=== PATIENT | female | born 1935 | race Caucasian/White ===

== ENCOUNTER → 2019-05-25 12:14 | Outpatient (BNVA) | payer MEDICARE, OTHER, SELFPAY | PROVIDERS: Family Provider Family Medicine; PCP Family Medicine; Visit Provider Internal Medicine Cardiovascular Disease | DX: I48.91 Unspecified atrial fibrillation (principal) | CPT/HCPCS: 85610 ==

== ENCOUNTER 2019-06-05 14:19 | Emergency (ER) | payer MEDICARE, OTHER, SELFPAY ==
[2019-06-05 14:23] VITALS: BP 146/81; PULSE 79; RESP 17; TEMP 36.8; O2SAT 99; BMI 23.9
--- NOTE | 2019-06-05 15:17 | ECG_ITS ---
Measurements Intervals [place] Rate: 71 P: LA: 0 QRS: 47 QRSD: 132 T: -34 QT: 416 QTc: 452 ATRIAL FIBRILLATION RIGHT BUNDLE BRANCH BLOCK [120+ ms QRS DURATION, UPRIGHT V1, 40+ ms S IN I/ I/aVL/V4/V5/V6] Compared to ECG 04/27/2017 04:59:57 Sinus rhythm no longer present Electronically Signed On 06-05-2019 19:30:58 LEARNING FACILITATOR by Erna Saba M.D. [email or web address]
--- NOTE | 2019-06-05 15:25 | ED_ITS ---
Entered by Rae Jackson, acting as scribe for Ramon Desouza DO Jun 05, 2019 14:19 HPI - Dizziness General: Chief Complaint: Dizziness Stated Complaint: LIGHT HEADED Time Seen by Provider: 06/05/19 15:25 Source: patient and family Mode of arrival: ambulatory Limitations: no limitations History of Present Illness: HPI Narrative: 84 yo Female presents to ED with complaint of dizziness. Pt states that the room is spinning. Pt states that she was sleeping when this started. Pt states that moving and turning her head doesn't change this. Pt's family states that the patient was complaining of a headache the other day. Pt and family states that the patient has had no medication changes recently. Pt's family states that the patient has a leaky heart valve that she takes Metoprolol for. Pt states that she is ok if she is laying down but if she tries to get up, she gets dizzy. MD elicited complaint: dizziness Onset (ago): hour(s) Timing: awoke with symptoms Description: room spinning History of similar symptoms: No Exacerbating factors: nothing Relieving factors: nothing Associated symptoms: Reports no associated symptoms; Denies chest pain, chills, headache(s), malaise, nausea, nasal congestion, palpitations, syncope or vomiting Associated neuro symptoms: Reports no associated symptoms; Deny confusion, difficulty swallowing or numbness in extremities Review of Systems Const: Denies: fever, chills, body aches, fatigue, malaise or night sweats Eyes: Denies: change in vision or blurry vision ENMT: Denies: throat pain, oral sores/lesions, dental pain, nasal discharge or nasal congestion Card: Denies: chest pain, palpitations, irregular heart rhythm, edema, syncope, shortness of breath on exertion, shortness of breath when lying down or leg pain with exertion Resp: Denies: shortness of breath, productive cough, non-productive cough or wheezing GI: Denies: abdominal pain, nausea, vomiting, vomiting blood, coffee grounds in vomit, difficulty swallowing, heartburn/indigestion, diarrhea, constipation, cramping, blood in stool or black tarry stool : Denies: flank pain, painful urination, urinary frequency, urinary urgency, urinary incontinence or blood in urine Musc: Denies: neck pain, back pain, extremity pain, extremity swelling, joint pain or joint swelling Skin/Breast: Denies: rash, itching or redness Neuro: Reports: dizziness; Denies: headache, numbness in extremities, weakness in extremities, changes in sensation, lack of coordination, difficulty walking, frequent falls, vertigo or confusion Psych: Denies: anxiety, depression, loss of interest, visual hallucinations, auditory hallucinations, suicidal ideation or homicidal ideation Endo: Denies: excessive urination, excessive thirst, tired all the time or cold intolerance Earl/Lymph: Denies: easy bruising, easy bleeding, petechiae, enlarged lymph nodes or tender lymph nodes PFSH ED PFSH: Medical History Atrial fibrillation Social History Smoking and tobacco status: former smoker Physical Exam Const: COMMON NORMALS: average body habitus, oriented x3 and alert GENERAL APPEARANCE: cooperative, comfortable, well kempt and well developed NUTRITIONAL APPEARANCE: obese ORIENTATION/CONSCIOUSNESS: Yes awake, Yes oriented to person and Yes oriented to place HENMT: COMMON NORMALS: normocephalic, head/scalp atraumatic, EAC's normal, TM's normal bilaterally, external nose normal, moist oral mucous membranes and oropharynx normal HEAD & SCALP: normocephalic and atraumatic NOSE: external nose normal EXTERNAL AUDITORY CANAL: EAC's normal TYMPANIC MEMBRA NE: TM's normal bilaterally MOUTH: oral and palatal mucosa normal, lip normal and tongue normal THROAT: posterior oropharynx normal and tonsils normal Eye: COMMON NORMALS: PERRL, EOMs intact bilaterally, conjunctivae normal and no scleral icterus CONJUNCTIVA: Yes conjunctivae normal PUPIL: Yes PERRL Neck/C-Spine: COMMON NORMALS: full ROM, no lymphadenopathy, supple, no meningeal signs and thyroid normal THYROID: thyroid normal and asymmetrical Lymph: LYMPHATIC: no lymphadenopathy noted Resp: COMMON NORMALS: normal respiratory effort, no retractions, no use of accessory muscles and clear to auscultation bilaterally AUSCULTATION: clear to auscultation bilaterally Cardio: COMMON NORMALS: regular rate and regular rhythm RATE: regular rate RHYTHM: regular rhythm HEART SOUNDS: no murmurs GI: COMMON NORMALS: normal to inspection, nondistended, normoactive bowel sounds, soft to palpation and no hepatosplenomegaly PALPATION: Yes soft and Yes no hepatosplenomegaly : COMMON NORMALS: Yes no CVA tenderness BLADDER/KIDNEY EXAM: Yes no CVA tenderness Back/Pelvis: COMMON NORMALS: no CVA tenderness LUMBAR SPINE/LOWER BACK: Yes normal to inspection Extremity: COMMON NORMALS: no clubbing, cyanosis or edema, no calf tenderness and no pedal edema Neuro: COMMON NORMALS: oriented x3 SENSORIUM/ORIENTATION: Yes alert, Yes oriented to person and Yes oriented to place MENINGEAL SIGNS: Yes no meningeal signs Psych: APPEARANCE: Yes well kempt Skin: COMMON NORMALS: no rashes or lesions noted and skin turgor normal GENERAL SKIN EXAM: no rashes or lesions noted and turgor normal Course ED course: Reviewed findings the patient she is feeling somewhat better Vital Signs: Vital signs: Vital Signs Temperature 98.2 F 06/05/19 14:23 Pulse Rate 72 06/05/19 18:04 Respiratory Rate 20 H 06/05/19 18:04 Blood Pressure 141/92 06/05/19 18:04 Pulse Oximetry 96 06/05/19 18:04 MDM - Dizziness Lab Data: Labs: Lab Results 06/05/19 06/05/19 06/05/19 Range/Units 15:56 15:56 15:56 WBC 7.2 (4.0-10.0) 10^3/ uL RBC 5.16 (4.1-5.3) 10^6/u L Hgb 14.1 (11.5-15.3) g/dL Hct 44.7 (37.0-47.0) % MCV 86.6 (81-99) fL MCH 27.3 L (28.0-34.0) pg MCHC 31.5 (30.0-36.0) g/dL RDW 16.1 H (12.1-15.1) % Plt Count 262 (130-400) 10^3/c mm MPV 9.6 (7.4-10.4) fL Neut % (Auto) 67.8 % Lymph % (Auto) 23.2 % [place] % (Auto) 8.0 % Eos % (Auto) 0.0 % Baso % (Auto) 0.6 % Neut # (Auto) 4.9 (1.8-7.7) 10^3/u L Lymph # (Auto) 1.7 (0.8-4.8) 10^3/u L [place] # (Auto) 0.6 (0.2-0.9) 10^3/u L Eos # (Auto) 0.0 (0.0-0.8) 10^3/u L Baso # (Auto) 0.0 (0.0-0.1) 10^3/u L Nucleated RBC % (a uto) 0 % Nucleated RBCs # 0.0 /100WBC PT 22.60 H (10.5-13.3) SECO NDS INR 1.91 H (0.8-1.2) Sodium 140 (136-145) mmol/L Potassium 4.1 (3.5-5.1) mmol/L Chloride 104 (98-107) mmol/L Carbon Dioxide 24 (22-29) mmol/L Anion Gap 16.1 (5-19) BUN 21 (8-23) mg/dL Creatinine 0.7 (0.5-0.9) mg/dL Glucose 117 H (65-115) mg/dL Calcium 9.3 (8.5-10.5) mg/dL Total Bilirubin 0.8 (0.15-1.2) mg/dL AST 23 (0-32) U/L ALT 18 (0-33) U/L Alkaline Phosphata se 116 H (35-105) IU/L Total Protein 7.3 (6.6-8.7) g/dL Albumin 3.8 (3.5-5.2) g/dL Globulin 3.5 (1.3-4.6) g/dL Imaging Data^: CT Head: Radiologist's impression: [place] [address] CT Scan Report Signed Patient: Shivani Zepeda #: [id number] : 5Acct#:[id number] Age/Sex: 84 / FADM Date: 06/05/19 Loc: ERRoom/Bed: Attending Dr: Ordering Provider/Ordering MD: Ramon Desouza DO Date of Service: 06/05/19 Procedure(s): CT head wo con* [id number] Accession Number(s): [id number] Report Number: [id number] PROCEDURE INFORMATION: Exam: CT Head Without Contrast Exam date and time: 06/05/2019 4:09 PM Age: 84 years old Clinical indication: Patient HX: C/O dizziness - light headed - BONE; Additional info: Vertigo, headache TECHNIQUE: Imaging protocol: Computed tomography of the head without contrast. Total DLP: 736.58 mGy-cm Radiation optimization: All CT scans at this facility use at least one of these dose optimization techniques: automated exposure control; mA and/or kV adjustment per patient size (includes targeted exams where dose is matched to clinical indication); or iterative reconstruction. COMPARISON: CT head wo con* [id number] 04/26/2017 11:08 AM FINDINGS: Brain: There is diffuse cerebral atrophy present, consistent with this patient's age. Periventricular and subcortical white matter low densities are present which at this age likely represent microvascular ischemic change. No evidence for large acute ischemic infarction. Please note acute ischemia can be occult by head CT. Ventricles: Normal. No ventriculomegaly. Bones/joints: Unremarkable. No acute fracture. Sinuses: Visualized sinuses are unremarkable. No fluid levels. Mastoid air cells: Visualized mastoid air cells are well aerated. Soft tissues: Unremarkable. CT/CT head wo con* [id number] IMPRESSION: There are senescent changes of the brain as described above. No evidence for large acute ischemic infarction or acute intracranial injury. Radiation Dose CTDIVOL = (mGy): DLP = 736.58 (mGy-cm) Dictated By:Madelyn Monge MD Signed By:Madelyn Monge MDSigned Date/Time:06/05/191656 DD/ 54 Discharge Plan Discharge Patient Disposition: Home, Self-Care Clinical Impression: Labyrinthine disorder Condition: Stable Prescriptions: New Ativan 0.5 mg tablet 0.5 mg PO Q8H PRN (Reason: dizziness or vertigo) Qty: 14 RF: 0 meclizine 25 mg tablet 25 mg PO QID PRN (Reason: dizziness) Qty: 30 RF: 0 No Action warfarin 1 mg tablet See Rx Instructions .ROUTE .COMPLEX RF: 0 latanoprost 0.005 % drops 1 drp ophthalmic (eye) DAILY RF: 0 levothyroxine 75 mcg tablet 75 mcg PO DAILY RF: 0 prednisolone acetate 1 % drops,suspension 1 drp ophthalmic (eye) QID RF: 0 timolol maleate 0.25 % drops 1 drp ophthalmic (eye) DAILY RF: 0 omeprazole 20 mg capsule,delayed release(DR/EC) 20 mg PO DAILY RF: 0 felodipine 10 mg tablet extended release 24 hr 10 mg PO DAILY RF: 0 Lasix 20 mg Tablet 20 mg PO DAILY PRN (Reason: Edema) RF: 0 metoprolol tartrate 25 mg tablet 12.5 mg PO BID RF: 0 PreserVision AREDS [id number],[id number] [id number] Tablet 1 tab PO DAILY RF: 0 Myrbetriq 25 mg tablet extended release 24 hr 25 mg PO DAILY RF: 0 Discharge Orders: Discharge Order (Routine); Ordered 06/05/19 Ordered By: Ramon Desouza Referrals: Juan Ramon Diamond DO [Primary Care Provider] - Discharge Diet: Usual diet Discharge Activity: Increase activity as tolerated Activity Restrictions/Additional Instructions: If worsens return to the emergency room. If does not improve follow-up with your primary care doctor. Discharge Date/Time: 06/05/19 18:05 Coding Level of Care Code ED Product Management Internship for Chg Fwd Exam Comprehensive The documentation recorded by the Manuel fernandez Carmen, accurately reflects the service I personally performed and the decisions made by Deo peng Curtis L, DO Jun 05, 2019 14:19
[2019-06-05 16:04] LABS: Basophils % 0.6 %; Hematocrit 44.7 % (37.0-47.0); Hemoglobin 14.1 g/dL (11.5-15.3); Lymphocytes # 1.7 10^3/uL (0.8-4.8); Lymphocytes % 23.2 %; Mean Corpuscular HGB Conc 31.5 g/dL (30.0-36.0); Mean Corpuscular Hemoglobin 27.3 pg (28.0-34.0); Mean Corpuscular Volume 86.6 fL (81-99); Mean Platelet Volume 9.6 fL (7.4-10.4); Monocytes # 0.6 10^3/uL (0.2-0.9); Neutrophils # 4.9 10^3/uL (1.8-7.7); Neutrophils % 67.8 %; Nucleated Red Blood Cells % 0 %; Platelet Count 262 10^3/cmm (130-400); Red Blood Count 5.16 10^6/uL (4.1-5.3); Red Cell Distribution Width 16.1 % (12.1-15.1); White Blood Count 7.2 10^3/uL (4.0-10.0)
--- NOTE | 2019-06-05 16:07 | CTR_ITS ---
PROCEDURE INFORMATION: Exam: CT Head Without Contrast Exam date and time: 06/05/2019 4:09 PM Age: 84 years old Clinical indication: Patient HX: C/O dizziness - light headed - BONE; Additional info: Vertigo, headache TECHNIQUE: Imaging protocol: Computed tomography of the head without contrast. Total DLP: 736.58 mGy-cm Radiation optimization: All CT scans at this facility use at least one of these dose optimization techniques: automated exposure control; mA and/or kV adjustment per patient size (includes targeted exams where dose is matched to clinical indication); or iterative reconstruction. COMPARISON: CT head wo con* [id number] 04/26/2017 11:08 AM FINDINGS: Brain: There is diffuse cerebral atrophy present, consistent with this patient's age. Periventricular and subcortical white matter low densities are present which at this age likely represent microvascular ischemic change. No evidence for large acute ischemic infarction. Please note acute ischemia can be occult by head CT. Ventricles: Normal. No ventriculomegaly. Bones/joints: Unremarkable. No acute fracture. Sinuses: Visualized sinuses are unremarkable. No fluid levels. Mastoid air cells: Visualized mastoid air cells are well aerated. Soft tissues: Unremarkable. CT/CT head wo con* [id number] IMPRESSION: There are senescent changes of the brain as described above. No evidence for large acute ischemic infarction or acute intracranial injury. Radiation Dose CTDIVOL = (mGy): DLP = 736.58 (mGy-cm)
[2019-06-05 16:13] LABS: INR 1.91 (0.8-1.2)
[2019-06-05 16:23] LABS: Alanine Aminotransferase 18 U/L (0-33); Albumin Level 3.8 g/dL (3.5-5.2); Alkaline Phosphatase 116 IU/L (35-105); Anion Gap 16.1 (5-19); Aspartate Amino Transferase 23 U/L (0-32); Blood Urea Nitrogen 21 mg/dL (8-23); Calcium 9.3 mg/dL (8.5-10.5); Carbon Dioxide 24 mmol/L (22-29); Chloride 104 mmol/L (98-107); Creatinine Clr Calc Pharmacy 46.2232; Globulin 3.5 g/dL (1.3-4.6); Glucose 117 mg/dL (65-115); Potassium 4.1 mmol/L (3.5-5.1); Sodium 140 mmol/L (136-145); Total Bilirubin 0.8 mg/dL (0.15-1.2); Total Protein 7.3 g/dL (6.6-8.7)
[2019-06-05] MEDS: sodium chloride 0.9% 500 ML 999 ML IV (17:02)
[2019-06-05] MEDS: LORazepam 2 mg/mL INJ 1 mL 1 MG IVP (17:42)
[2019-06-05 18:04] VITALS: BP 141/92; PULSE 72; RESP 20; O2SAT 96
== END 2019-06-05 18:05 | disposition home or self-care (01) ==
PROVIDERS: Emergency Medicine; Emergency Provider Family Medicine; Family Provider Family Medicine; PCP Family Medicine
DX: H83.90 Unspecified disease of inner ear, unspecified ear (principal); I48.91 Unspecified atrial fibrillation; E66.9 Obesity, unspecified; Z68.23 Body mass index [BMI] 23.0-23.9, adult; Z79.01 Long term (current) use of anticoagulants; Z87.891 Personal history of nicotine dependence
CPT/HCPCS: 36415; 70450; 80053; 85025; 85610; 93005; 96361; 96374; 96375; 99282; 99283; A9270; J2060; J7040

== ENCOUNTER → 2019-06-22 15:09 | Outpatient (BNVA) | payer MEDICARE, OTHER, SELFPAY | PROVIDERS: Family Provider Family Medicine; PCP Family Medicine; Visit Provider Internal Medicine Cardiovascular Disease | DX: I48.91 Unspecified atrial fibrillation (principal); I10 Essential (primary) hypertension | CPT/HCPCS: 85610 ==

== ENCOUNTER 2019-11-23 09:10 | Outpatient (CLI) | payer MEDICARE, OTHER, SELFPAY ==
--- NOTE | 2019-11-23 09:30 | USCV_ITS ---
Shivani Zepeda Age: 84 Gender: F : 1935 Exam Date: 11/23/2019 09:32 Ordering Phys: Angle Carmen Technologist: Romie Garcia [place] [facility] [place]: MVR BP: 125 / 72 HR: 60 Rhythm: Sinus Technical Quality: Adequate MEASUREMENTS (Male / Female) Normal Values 2D ECHO LV Diastolic Diameter PLAX 3.5 cm 4.2 - 5.9 / 3.9 - 5.3 cm LV Systolic Diameter PLAX 2.6 cm IVS Diastolic Thickness 0.9 cm 0.6 - 1.0 / 0.6 - 0.9 cm IVS Systolic Thickness 1.1 cm LVPW Diastolic Thickness 1.1 cm 0.6 - 1.0 / 0.6 - 0.9 cm LVPW Systolic Thickness 1.0 cm LVOT Diameter 2.1 cm LV Ejection Fraction 2D Teich 52.1 % LV Ejection Fraction MOD 2C 54.3 % LV Ejection Fraction 2C AL 55.8 % LA Diameter 3.9 cm LA Width 5.8 cm LA Height 6.7 cm RA Width 4.0 cm RA Height 5.7 cm Aorta at Sinotubular Diameter 0.9 cm M-MODE LV Diastolic Diameter MM 4.2 cm 4.2 - 5.9 / 3.9 - 5.3 cm LV Systolic Diameter MM 3.0 cm LV Ejection Fraction MM Teich 54.3 % IVS Diastolic Thickness MM 1.4 cm 0.6 - 1.0 / 0.6 - 0.9 cm IVS Systolic Thickness MM 1.8 cm LVPW Diastolic Thickness MM 1.6 cm 0.6 - 1.0 / 0.6 - 0.9 cm LVPW Systolic Thickness MM 1.6 cm RV Diastolic Diameter MM 1.6 cm Aortic Annulus Diameter 2.6 cm LA Ao Ratio MM 1.5 MV E Point Septal Separation 0.7 cm DOPPLER AV Peak Velocity 109.0 cm/s LVOT Peak Velocity 67.0 cm/s AV Area Cont Eq vti 2.3 cm squared AV Area Cont Eq pk 2.2 cm squared MV Area PHT 5.0 cm squared Mitral E to A Ratio 3.8 MV E' Velocity 16.0 cm/s Mitral E to MV E' Ratio 7.6 Mitral E to LV E' Lateral Ratio 6.1 Mitral E to LV E' Septal Ratio 10.3 TR Peak Velocity 284.0 cm/s TR Peak Gradient 32.3 mmHg TV Peak E Velocity 93.0 cm/s Right Atrial Pressure 3.0 mmHg Pulmonary Artery Systolic Pressu 35.3 mmHg PV Peak Velocity 108.0 cm/s FINDINGS Left Ventricle Normal left ventricular cavity size. Normal left ventricular systolic function. No regional wall motion abnormalities. Left ventricular ejection fraction is estimated at 55 %. The presence of atrial fibrillation diastolic function cannot be assessed accurately. Right Ventricle The right ventricle is normal in size and function. Mild pulmonary hypertension, RVSP 35.3 mmHg. Right Atrium The right atrium is normal in size. Left Atrium Severely increased left atrial size. Mitral Valve Moderately thickened mitral valve. No mitral valve stenosis. Severe mitral valve regurgitation. Aortic Valve Moderate aortic valve calcification. No aortic valve stenosis. No aortic valve regurgitation. Tricuspid Valve Thickened tricuspid valve. No tricuspid valve stenosis. Severe tricuspid valve regurgitation. Pulmonic Valve Structurally normal pulmonic valve without significant stenosis. There is no pulmonic regurgitation. Pericardium Normal pericardium without effusion. Aorta Normal ascending aorta dimension. CONCLUSIONS 1-Normal left ventricular cavity size. Normal left ventricular systolic function. No regional wall motion abnormalities. Left ventricular ejection fraction is estimated at 55 %. The presence of atrial fibrillation diastolic function cannot be assessed accurately. 2-The right ventricle is normal in size and function. Mild pulmonary hypertension, RVSP 35.3 mmHg. 3-Severely increased left atrial size. 4-Moderately thickened mitral valve. No mitral valve stenosis. Severe mitral valve regurgitation. 5-Moderate aortic valve calcification. No aortic valve stenosis. No aortic valve regurgitation. 6-Thickened tricuspid valve. No tricuspid valve stenosis. Severe tricuspid valve regurgitation. 7-There is no pericardial effusion. 8-There are no prior echocardiogram studies to compare 05/08/2018. Howard Graham MD (Electronically Signed) Final Date: 23 November 2019 20:49 S
== END 2019-11-23 09:11 | disposition home or self-care (01) ==
PROVIDERS: Family Provider Family Medicine; PCP Family Medicine; Visit Provider Nurse Practitioner Family
DX: I27.20 Pulmonary hypertension, unspecified (principal); I08.3 Combined rheumatic disorders of mitral, aortic and tricuspid valves
CPT/HCPCS: 93306

== ENCOUNTER 2020-07-17 16:27 | Emergency (ER) | payer MEDICARE, OTHER, SELFPAY ==
[2020-07-17 16:38] VITALS: BP 160/107; PULSE 70; RESP 18; TEMP 36.7; O2SAT 97; BMI 23.3
--- NOTE | 2020-07-17 17:09 | ECG_ITS ---
[facility] Test Date: 2020-07-17 Pat Name: Shivani Zepeda Department: Room: Gender: Female Story Analyst: : 1935 Requested By: Catracho Reynoso Order Number: [id number] Joesph MD: Humberto Gannon M.D. Measurements Intervals [place] Rate: 71 P: VT: QRS: 24 QRSD: 132 T: -50 QT: 386 QTc: 419 Interpretive Statements ATRIAL FIBRILLATION INTRAVENTRICULAR CONDUCTION DELAY [130+ ms QRS DURATION] Compared to ECG 06/05/2019 14:31:03 Intraventricular conduction delay now present Right bundle-branch block no longer present Electronically Signed On 07-18-2020 1:14:01 CDT by Humberto Gannon M.D. [email or web address]
--- NOTE | 2020-07-17 17:10 | W.ED.GENADLT ---
HPI - General Adult General: Chief complaint: General Medical Stated complaint: high bp Time Seen by Provider: 07/17/20 16:51 Source: patient, family and RN notes reviewed Limitations: no limitations History of Present Illness: HPI narrative: This patient presents to the emergency department for complaints of chronic hypertension. Family member state that the patient has been getting adjustments of her medications for few weeks now but just not controlling her blood pressure. They state the centrifugal wax molder wanted to keep her blood pressure great less than 150 systolic. But she has been trending higher than that. Patient's blood pressure on arrival is 178/110. Patient has no specific complaints. Family is requesting that we do an evaluation to see if there is any adjustments to be made. We did discuss at length with patient's chronic conditions and follow-up with PCP. We also discussed at length with her current medication regimen. And how to maintain a blood pressure log. We will do medical evaluation treat as needed Onset (ago): week(s) (5) Pain Consistency: intermittent Associated symptoms: Deny chest pain, dyspnea, headache(s), nausea, rash, palpitations or vomiting Review of Systems General: Reports: 10 or more systems reviewed and unremarkable except in HPI and below Const: Denies: fever(s), chills, body aches or fatigue Eyes: Denies: change in vision or blurry vision ENMT: Denies: throat pain, hoarseness or mouth pain Card: Denies: chest pain, palpitations, irregular heart rhythm, edema, swelling of feet/ankles or lightheadedness Resp: Denies: dyspnea, productive cough, non-productive cough, wheezing or pain on inspiration GI: Denies: abdominal pain, nausea or vomiting : Denies: flank pain, difficulty voiding, dysuria, urinary frequency, urinary urgency or urinary hesitancy Musc: Denies: neck pain, back pain, extremity pain, extremity swelling, joint pain, joint swelling, joint redness, joint warmth or limited range of motion Skin/Breast: Denies: rash, pruritus, erythema or skin tenderness Neuro: Denies: headache(s), numbness in extremities or weakness in extremities Psych: Denies: anxiety or depression PFS ED PFSH: Medical History (Updated 07/17/20 @ 18:57 by Catracho Reynoso MD) Atrial fibrillation GERD (gastroesophageal reflux disease) HTN (hypertension) Hypothyroidism Long-term (current) use of anticoagulants, INR goal 2.0-3.0 Severe mitral regurgitation Surgical History S/P tonsillectomy Family History Mother Dementia Heart disease Father Lung disease Social History Smoking and tobacco status: former smoker History of recent travel: No Physical Exam Const: COMMON NORMALS: no acute distress, average body habitus, patient oriented x3, no limitations, healthy appearing, alert and well nourished HENMT: COMMON NORMALS: normocephalic, atraumatic, external ears normal, EAC's normal, TM's normal bilaterally, Normal external nose present and Normal nasal mucous membranes and turbinates present HEAD & SCALP: normocephalic and atraumatic NOSE: Normal external nose present and Normal nasal mucous membranes and turbinates present EXTERNAL EAR: Yes external ears normal EXTERNAL AUDITORY CANAL: EAC's normal TYMPANIC MEMBRANE: TM's normal bilaterally Neck/C-Spine: COMMON NORMALS: full ROM, no lymphadenopathy, supple, no meningeal signs, no JVD, Thyroid normal and No carotid bruits THYROID: Thyroid normal Chest: COMMONS NORMALS: normal inspection of the chest, normal palpation of entire chest wall, normal inspection of the breasts and normal palpation of the breasts Breast/axilla inspection: Yes normal inspection of the breasts BREAST/AXILLA PALPATION: Yes normal palpation of the breasts Resp: COMMON NORMALS: normal respiratory effort, No retractions, No use of accessory muscles, clear to auscultation bilaterally and percussion normal AUSCULTATION: clear to auscultation bilaterally PERCUSSION: percussion normal Cardio: COMMON NORMALS: no JVD, regular rate, regular rhythm, S1 normal heart sound present, S2 normal heart sound present, No gallops present (Cardio), No clicks present (Cardio), No murmurs present (Cardio), No rub (Cardio) and Peripheral pulses 2+ throughout RATE: regular rate RHYTHM: regular rhythm HEART SOUNDS: S1 normal heart sound present and S2 normal heart sound present PERIPHERAL PULSES: Peripheral pulses 2+ throughout GI: COMMON NORMALS: Normal to inspection, nondistended, normoactive bowel sounds present, Soft to palpation, non-tender, No hepatosplenomegaly present, no masses and no bruits PALPATION: Yes Soft to palpation and Yes No hepatosplenomegaly present : COMMON NORMALS: Yes no CVA tenderness, Yes normal external appearance, Yes normal appearance of the vagina, Yes normal appearance of the cervix, Yes normal bimanual exam, Yes No adnexal tenderness and Yes no masses BLADDER/KIDNEY EXAM: Yes no CVA tenderness BIMANUAL EXAM - VAGINA & UTERUS: Yes normal bimanual exam Back/Pelvis: COMMON NORMALS: no CVA tenderness, thoracic and lumbar spine normal to inspection, no thoracic nor lumbar tenderness, thoraco-lumbar ROM normal and straight leg raise negative bilaterally Extremity: COMMON NORMALS: normal to inspection, full ROM, capillary refill normal, no joint enlargement, no clubbing, cyanosis or edema, no calf tenderness and no pedal edema Neuro: COMMON NORMALS: patient oriented x3 SENSORIUM/ORIENTATION: Yes alert MENINGEAL SIGNS: Yes no meningeal signs Course Reevaluation(s): Reevaluation #1: Patient is consistently been stable with no complaints. Blood pressure has been consistently around 170/100. Patient has no complaints of pain. Patient does have a chronic issue of incontinence. We did discuss at length with patient about her blood pressure medications and reviewed all medications with family. Both family in person and a family member on the phone per patient's request. Patient will get was given the following instructions and agrees. She will be discharged home follow-up with PCP with blood pressure log as instructed. Continue all home medications. On your blood pressure medicine called metoprolol take 2 tablets twice a day. Hold your metoprolol if your systolic blood pressure is 100 or less or your heart rate is less than 160. Keep a blood pressure log as instructed take your blood pressure first thing in the morning before you take your morning medications. Take your blood pressure in the evening after resting and 30 minutes were prior to dinner or taking her evening medications. Keep a blood pressure log and follow-up with your primary care physician discuss other options for your blood pressure. Return to the emergency department as needed if symptoms fail to improve or worsen. Time: 18:58 Vital Signs: Vital signs: Vital Signs Temperature 98.1 F 07/17/20 16:38 Pulse Rate 77 07/17/20 18:31 Respiratory Rate 18 07/17/20 16:38 Blood Pressure 178/106 07/17/20 18:31 Pulse Oximetry 97 07/17/20 18:31 MDM - General Adult MDM Narrative: Medical decision making narrative: Patient is medically stable with no complaints. Patient does have hypertension and is on multiple medications for the same and followed closely by primary care and cardiology. Patient will double her dose of metoprolol family will continue to monitor and follow-up with cardiology as instructed. Differential Diagnosis: Differential Diagnosis: Hypertension, atrial fib, chronic renal disease, Medical Records: Attestation: I reviewed the patient's medical records. Lab Data: Attestation: I reviewed the patient's lab results. Labs: Lab Results 07/17/20 07/17/20 Range/Units 17:37 17:37 WBC 8.1 (4.0-10.0) 10^3/ uL RBC 4.37 (4.1-5.3) 10^6/u L Hgb 12.5 (11.5-15.3) g/dL Hct 39.1 (37.0-47.0) % MCV 89.5 (81-99) fL MCH 28.6 (28.0-34.0) pg MCHC 32.0 (30.0-36.0) g/dL RDW 15.9 H (12.1-15.1) % Plt Count 253 (130-400) 10^3/c mm MPV 10.3 (7.4-10.4) fL Neut % (Auto) 67.4 % Lymph % (Auto) 21.7 % Crowley % (Auto) 10.3 % Eos % (Auto) 0.0 % Baso % (Auto) 0.2 % Neut # (Auto) 5.48 (1.8-7.7) 10^3/u L Lymph # (Auto) 1.8 (0.8-4.8) 10^3/u L Crowley # (Auto) 0.8 (0.2-0.9) 10^3/u L Eos # (Auto) 0.0 (0.0-0.8) 10^3/u L Baso # (Auto) 0.0 (0.0-0.1) 10^3/u L Nucleated RBC % (a uto) 0 % Nucleated RBCs # 0.0 /100WBC Sodium 139 (136-145) mmol/L Chloride 104 (98-107) mmol/L Carbon Dioxide 26 (22-29) mmol/L BUN 17 (8-23) mg/dL Creatinine 0.6 (0.5-0.9) mg/dL GFR Calculation Not Reportable Glucose 105 (65-115) mg/dL Calculated Osmolal ity 290 (285-295) mOsm/k g Calcium 8.5 (8.5-10.5) mg/dL Total Bilirubin 0.8 (0.15-1.2) mg/dL AST 17 (0-32) U/L ALT 15 (0-33) U/L Total Protein 7.0 (6.6-8.7) g/dL Albumin 3.9 (3.5-5.2) g/dL Globulin 3.1 (1.3-4.6) g/dL EKG Data^: EKG 1: Attestation: I personally reviewed and interpreted this EKG as follows: EKG interpretation date: 07/17/20 EKG interpretation time: 18:01 Prior EKG tracings: available for review Interpretation: Atrial fibrillation. Interventricular conduction delay. Heart rate 71 nonspecific EKG changes. Abnormal EKG Discharge Plan Discharge Patient Disposition: Home Clinical Impression: HTN (hypertension), Atrial fibrillation, Severe mitral regurgitation Condition: Stable Prescriptions: No Action levothyroxine 88 mcg capsule 88 mcg PO DAILY@1100 RF: 0 hydrochlorothiazide 12.5 mg tablet 12.5 mg PO BID Qty: 180 RF: 3 isosorbide mononitrate 30 mg tablet extended release 24 hr 15 mg PO BID Qty: 90 RF: 3 warfarin 2 mg tablet 2 mg PO DAILY 90 Days Qty: 90 RF: 3 warfarin 1 mg tablet 1 mg PO BID 90 Days Qty: 180 RF: 3 metoprolol tartrate 25 mg tablet 12.5 mg PO BID Qty: 30 RF: 6 latanoprost 0.005 % drops 1 drp ophthalmic (eye) BID RF: 0 timolol maleate 0.25 % drops 1 drp ophthalmic (eye) DAILY RF: 0 Myrbetriq 25 mg tablet extended release 24 hr 25 mg PO DAILY RF: 0 PreserVision AREDS 7,160-113-100 [id number] tablet 1 tab PO BID RF: 0 valsartan 80 mg tablet 80 mg PO BID RF: 0 Discharge Orders: Discharge ED (Routine); Ordered 07/17/20 Ordered By: Catracho Reynoso Referrals: Juan Ramon Diamond, DO [Primary Care Provider] - Discharge Diet: Advance as tolerated Discharge Activity: Resume usual activity Patient Instructions: Opioid Safety Activity Restrictions/Additional Instructions: Continue all home medications. On your blood pressure medicine called metoprolol take 2 tablets twice a day. Hold your metoprolol if your systolic blood pressure is 100 or less or your heart rate is less than 160. Keep a blood pressure log as instructed take your blood pressure first thing in the morning before you take your morning medications. Take your blood pressure in the evening after resting and 30 minutes were prior to dinner or taking her evening medications. Keep a blood pressure log and follow-up with your primary care physician discuss other options for your blood pressure. Return to the emergency department as needed if symptoms fail to improve or worsen. Coding Level of Care Code ED Water Chaser for Juan Fwjero Exam Comprehensive
[2020-07-17 17:48] LABS: Basophils % 0.2 %; Hematocrit 39.1 % (37.0-47.0); Hemoglobin 12.5 g/dL (11.5-15.3); Lymphocytes # 1.8 10^3/uL (0.8-4.8); Lymphocytes % 21.7 %; Mean Corpuscular Hemoglobin 28.6 pg (28.0-34.0); Mean Corpuscular Volume 89.5 fL (81-99); Mean Platelet Volume 10.3 fL (7.4-10.4); Monocytes # 0.8 10^3/uL (0.2-0.9); Monocytes % 10.3 %; Neutrophils # 5.48 10^3/uL (1.8-7.7); Neutrophils % 67.4 %; Nucleated Red Blood Cells % 0 %; Platelet Count 253 10^3/cmm (130-400); Red Blood Count 4.37 10^6/uL (4.1-5.3); Red Cell Distribution Width 15.9 % (12.1-15.1); White Blood Count 8.1 10^3/uL (4.0-10.0)
[2020-07-17] MEDS: amlodipine 10 mg Tablet PO (17:49)
[2020-07-17 18:07] LABS: Alanine Aminotransferase 15 U/L (0-33); Albumin Level 3.9 g/dL (3.5-5.2); Alkaline Phosphatase 114 IU/L (35-105); Aspartate Amino Transferase 17 U/L (0-32); Blood Urea Nitrogen 17 mg/dL (8-23); Calcium 8.5 mg/dL (8.5-10.5); Carbon Dioxide 26 mmol/L (22-29); Chloride 104 mmol/L (98-107); Globulin 3.1 g/dL (1.3-4.6); Glucose 105 mg/dL (65-115); Osmolality Calculated 290 mOsm/kg (285-295); Sodium 139 mmol/L (136-145); Total Bilirubin 0.8 mg/dL (0.15-1.2)
[2020-07-17 18:31] VITALS: BP 178/106; PULSE 77; O2SAT 97
[2020-07-17 18:55] LABS: Anion Gap 13.2 (5-19); Potassium 4.2 mmol/L (3.5-5.1)
[2020-07-17 19:45] VITALS: BP 182/110; PULSE 78; RESP 16; O2SAT 95
== END 2020-07-17 19:46 | disposition home or self-care (01) ==
PROVIDERS: Emergency Provider Emergency Medicine; PCP Family Medicine
DX: I48.91 Unspecified atrial fibrillation (principal); I34.0 Nonrheumatic mitral (valve) insufficiency; I10 Essential (primary) hypertension; Z79.01 Long term (current) use of anticoagulants; Z87.891 Personal history of nicotine dependence
CPT/HCPCS: 80053; 85025; 93005; 99283

== ENCOUNTER 2020-09-08 13:29 | Outpatient (CLI) | payer MEDICARE, OTHER, SELFPAY | END 2020-09-08 13:30 | disposition home or self-care (01) | PROVIDERS: PCP Family Medicine; Visit Provider Nurse Practitioner Family | DX: N39.0 Urinary tract infection, site not specified (principal) | CPT/HCPCS: 87086 ==

== ENCOUNTER → 2020-11-05 13:38 | Outpatient (BNVA) | payer MEDICARE, OTHER, SELFPAY | PROVIDERS: PCP Family Medicine; Visit Provider Nurse Practitioner Family | DX: N39.0 Urinary tract infection, site not specified (principal) | CPT/HCPCS: 81000; 87086 ==

== ENCOUNTER 2020-11-17 08:08 | Outpatient (CLI) | payer MEDICARE, OTHER, SELFPAY ==
--- NOTE | 2020-11-17 08:36 | XR_ITS ---
WS: [id number] ABDOMEN KUB CLINICAL INFORMATION: Renal/ureteral calculi. COMPARISON: None. FINDINGS: Minimal lumbar curve. Moderate spondylitic changes lumbar spine. Osteopenia. No visualized renal parenchymal or ureteral calculi. Pelvic phleboliths. Sigmoid constipation. XR/XR KUB [id number] Impression: No visualized renal parenchymal or ureteral calculi.
== END 2020-11-17 08:09 | disposition home or self-care (01) ==
PROVIDERS: PCP Family Medicine; Visit Provider Clinical Nurse Specialist Adult Health
DX: R30.0 Dysuria (principal)
CPT/HCPCS: 74018

== ENCOUNTER 2021-04-29 21:00 | Emergency (ER) | payer MEDICARE, OTHER, SELFPAY ==
--- NOTE | 2021-04-29 | XRR_ITS ---
PROCEDURE INFORMATION: Exam: XR Chest Exam date and time: 04/29/2021 10:29 PM Age: 86 years old Clinical indication: Dyspnea; Additional info: Covid 19 TECHNIQUE: Imaging protocol: XR of the chest. Views: 1 view. COMPARISON: CR Chest 1 [place] [id number] 04/26/2017 1:39 PM FINDINGS: Lungs: Hazy increased density in the right lung which may be secondary to atelectasis or COVID-19. Pleural spaces: Unremarkable. No pleural effusion. No pneumothorax. Heart/Mediastinum: There is mild cardiomegaly. Bones/joints: Unremarkable. XR/XR chest 1V portable [id number] IMPRESSION: 1. Mild cardiomegaly. 2. Hazy increased density in the right lung which may be secondary to atelectasis or COVID-19.
[2021-04-29 21:47] VITALS: BP 160/86; PULSE 107; RESP 20; TEMP 37.9; O2SAT 95; BMI 22.6
[2021-04-29 23:12] LABS: Basophils % 0.3 %; Hematocrit 42.2 % (37.0-47.0); Hemoglobin 13.6 g/dL (11.5-15.3); Lymphocytes # 1.1 10^3/uL (0.8-4.8); Lymphocytes % 10.9 %; Mean Corpuscular HGB Conc 32.2 g/dL (30.0-36.0); Mean Corpuscular Hemoglobin 29.6 pg (28.0-34.0); Mean Corpuscular Volume 91.7 fl (81-99); Mean Platelet Volume 10.3 fL (7.4-10.4); Monocytes # 1.3 10^3/uL (0.2-0.9); Monocytes % 12.5 %; Neutrophils # 7.75 10^3/uL (1.8-7.7); Neutrophils % 75.8 %; Nucleated Red Blood Cells % 0 %; Platelet Count 213 10^3/cmm (130-400); Red Cell Distribution Width 15.5 % (12.1-15.1); White Blood Count 10.2 10^3/uL (4.0-10.0)
[2021-04-29 23:37] LABS: Alanine Aminotransferase 15 U/L (0-33); Albumin Level 3.5 g/dL (3.5-5.2); Alkaline Phosphatase 114 IU/L (35-105); Anion Gap 16.1 (5-19); Aspartate Amino Transferase 18 U/L (0-32); Blood Urea Nitrogen 15 mg/dL (8-23); Calcium 8.5 mg/dL (8.5-10.5); Carbon Dioxide 22 mmol/L (22-29); Chloride 105 mmol/L (98-107); Globulin 3.2 g/dL (1.3-4.6); Glucose 140 mg/dL (65-115); Osmolality Calculated 291 mOsm/kg (285-295); Potassium 4.1 mmol/L (3.5-5.1); Sodium 139 mmol/L (136-145); Total Bilirubin 0.8 mg/dL (0.15-1.2); Total Protein 6.7 g/dL (6.6-8.7)
--- NOTE | 2021-04-30 01:57 | ED_ITS ---
HPI - COVID General: Chief Complaint: COVID symptoms Stated Complaint: Covid Symptoms Time Seen by Provider: 04/30/21 01:44 Triage information: Has fever, cough or shortness of breath . Exposure to COVID + person last 14 days History of Present Illness: HPI Narrative: 86-year-old female comes in today with complaints of fever and chills for the last 4 days. Patient reports starting fever on Friday. Patient a COVID-19 test done today at home that was positive. On exam patient appears unwell but not toxic. Patient is able to answer questions without difficulty. COVID 19 common symptoms: positive fever(s), non-productive cough and dyspnea COVID Results: No Data to Display Review of Systems Const: Reports: fever(s) and malaise Resp: Reports: dyspnea and non-productive cough [facility] ED PFSH: Medical History (Updated 04/30/21 @ 02:02 by JAZZY Cool) Atrial fibrillation GERD (gastroesophageal reflux disease) HTN (hypertension) Hypothyroidism Long-term (current) use of anticoagulants, INR goal 2.0-3.0 Severe mitral regurgitation Surgical History S/P tonsillectomy Family History Mother Dementia Heart disease Father Lung disease Social History Smoking and tobacco status: former smoker History of recent travel: No Physical Exam Const: COMMON NORMALS: patient oriented x3 and alert GENERAL APPEARANCE: ill appearing HENMT: COMMON NORMALS: atraumatic HEAD & SCALP: atraumatic MOUTH: moist mucous membranes abnormal Details: parched Resp: COMMON NORMALS: normal respiratory effort EFFORT & INSPECTION: Yes able to speak in complete sentences AUSCULTATION: diminished lung sounds Cardio: COMMON NORMALS: regular rate and Peripheral pulses 2+ throughout RATE: regular rate RHYTHM: abnormal rhythm irregularly irregular PERIPHERAL PULSES: Peripheral pulses 2+ throughout GI: COMMON NORMALS: Soft to palpation PALPATION: Yes Soft to palpation and No Tenderness to palpation present (GI) Extremity: COMMON NORMALS: no pedal edema Neuro: COMMON NORMALS: patient oriented x3 SENSORIUM/ORIENTATION: Yes alert Psych: ATTITUDE: Yes calm Skin: COMMON NORMALS: no rashes or lesions noted GENERAL SKIN EXAM: no rashes or lesions noted Course Vital Signs: Vital signs: Vital Signs Temperature 100.3 F H 04/29/21 21:47 Pulse Rate 107 H 04/29/21 21:47 Respiratory Rate 20 H 04/29/21 21:47 Blood Pressure 160/86 04/29/21 21:47 Pulse Oximetry 95 04/29/21 21:47 MDM - COVID MDM Narrative: Medical decision making narrative: Patient was brought in by family member for concerns of increased weakness. Patient has been ill since Friday with a fever and occasional cough. Family did a COVID-19 test this morning and it was positive. Daughter was concerned the patient may have been get dehydrated. On exam patient's lungs are diminished in the bases, normal respiratory effort, patient is able to answer questions without difficulty. Abdomen soft nontender. No edema. Heart rate was irregular. Vital signs were normal. Differential diagnosis includes COVID-19 pneumonia, viral syndrome, dehydration. Laboratory values were unremarkable. Patient did have mild elevation in white count at 10,000. Chest x-ray showed a light patch infiltrate to the right lung. We treated patient with 500 mL bolus of normal saline, 10 mg of dexamethasone IV push. Patient was encouraged to drink plenty of fluids we will arrange for patient to have monoclonal antibody at the infusion service. Patient and family both reported understanding agreed to plan. Lab Data: Labs: Lab Results 04/29/21 04/29/21 23:05 23:05 WBC 10.2 10^3/uL H 10 ^3/uL (4.0-10.0) RBC 4.60 10^6/uL 10^6 /uL (4.1-5.3) Hgb 13.6 g/dL g/dL (11.5-15.3) Hct 42.2 % % (37.0-47.0) MCV 91.7 fl fl (81-99) MCH 29.6 pg pg (28.0-34.0) MCHC 32.2 g/dL g/dL (30.0-36.0) RDW 15.5 % H % (12.1-15.1) Plt Count 213 10^3/cmm 10^3 /cmm (130-400) MPV 10.3 fL fL (7.4-10.4) Neut % (Auto) 75.8 % % Lymph % (Auto) 10.9 % % Anderson % (Auto) 12.5 % % Eos % (Auto) 0.0 % % Baso % (Auto) 0.3 % % Neut # (Auto) 7.75 10^3/uL H 10 ^3/uL (1.8-7.7) Lymph # (Auto) 1.1 10^3/uL 10^3/ uL (0.8-4.8) Anderson # (Auto) 1.3 10^3/uL H 10^ 3/uL (0.2-0.9) Eos # (Auto) 0.0 10^3/uL 10^3/ uL (0.0-0.8) Baso # (Auto) 0.0 10^3/uL 10^3/ uL (0.0-0.1) Nucleated RBC % (a uto) 0 % % Nucleated RBCs # 0.0 /100WBC /100W BC Sodium 139 mmol/L mmol/L (136-145) Potassium 4.1 mmol/L mmol/L (3.5-5.1) Chloride 105 mmol/L mmol/L (98-107) Carbon Dioxide 22 mmol/L mmol/L (22-29) Anion Gap 16.1 (5-19) BUN 15 mg/dL mg/dL (8-23) Creatinine 0.6 mg/dL mg/dL (0.5-0.9) GFR Calculation Not Reportable Glucose 140 mg/dL H mg/dL (65-115) Calculated Osmolal ity 291 mOsm/kg mOsm/ kg (285-295) Calcium 8.5 mg/dL mg/dL (8.5-10.5) Total Bilirubin 0.8 mg/dL mg/dL (0.15-1.2) AST 18 U/L U/L (0-32) ALT 15 U/L U/L (0-33) Alkaline Phosphata se 114 IU/L H IU/L (35-105) Total Protein 6.7 g/dL g/dL (6.6-8.7) Albumin 3.5 g/dL g/dL (3.5-5.2) Globulin 3.2 g/dL g/dL (1.3-4.6) COVID Results: No Data to Display Discharge Plan Discharge Patient Disposition: Home Clinical Impression: Pneumonia due to COVID-19 virus Condition: Stable Prescriptions: No Action levothyroxine 88 mcg capsule 88 mcg PO DAILY@1100 RF: 0 hydrochlorothiazide 12.5 mg tablet 12.5 mg PO BID Qty: 180 RF: 3 isosorbide mononitrate 30 mg tablet extended release 24 hr 15 mg PO BID Qty: 90 RF: 3 trimethoprim 100 mg tablet 100 mg PO DAILY RF: 0 warfarin 2 mg tablet 2 mg PO DAILY 90 Days Qty: 90 RF: 3 felodipine 10 mg tablet extended release 24 hr 10 mg PO DAILY PRN (Reason: BP >140) Qty: 30 RF: 0 warfarin 1 mg tablet 1 mg PO BID 90 Days Qty: 180 RF: 3 latanoprost 0.005 % drops 1 drp ophthalmic (eye) BID RF: 0 timolol maleate 0.25 % drops 1 drp ophthalmic (eye) DAILY RF: 0 Myrbetriq 25 mg tablet extended release 24 hr 25 mg PO DAILY RF: 0 PreserVision AREDS 7,160-113-100 [id number] tablet 1 tab PO BID RF: 0 valsartan 80 mg tablet 160 mg PO BID RF: 0 Discharge Orders: Discharge ED (Routine); Ordered 04/30/21 Ordered By: Phoenix Hutchison Other Ambulatory Orders: Request for MCA (Routine) Timeframe: 1 Day Facility: [facility] - Location: [facility] Ordered By: Phoenix Hutchison Referrals: Juan Ramon Diamond DO [Primary Care Provider] - Patient Instructions: Opioid Safety Activity Restrictions/Additional Instructions: Home and rest. Drink plenty of fluids. Activity as tolerated. Use inhaler 2 puffs every 4 hours as needed for shortness of breath. Use acetaminophen 2 tablets every 6 hours as needed for pain or fever. Follow-up with primary care in 3 days. Scheduling will be calling you regarding the monoclonal antibody infusion within the next 2 days. Return to the ER for worsening symptoms or new concerns. Continue monitoring oxygen, if it gets below 90% return to the ER for further evaluation and treatment. Coding Level of Care Code ED Lithographic Press Operator Apprentice for Juan Fwd Exam Comprehensive
[2021-04-30] MEDS: sodium chloride 0.9% 500 ML IV (02:56)
[2021-04-30] MEDS: dexamethasone 10 mg/mL INJ IVP (02:56)
[2021-04-30 03:22] LABS: SARS Covid-2 Antigen Positive (Negative)
[2021-04-30] MEDS: albuterol 8 gm MDI 2 PUFF INHALATION (03:38)
[2021-04-30 04:27] VITALS: BP 184/118; PULSE 106; RESP 18; O2SAT 96
== END 2021-04-30 04:28 | disposition home or self-care (01) ==
PROVIDERS: Emergency Provider Nurse Practitioner Family; PCP Family Medicine
DX: U07.1 COVID-19 (principal); J12.82 Pneumonia due to coronavirus disease 2019; Z79.01 Long term (current) use of anticoagulants; I10 Essential (primary) hypertension; Z87.891 Personal history of nicotine dependence
CPT/HCPCS: 71045; 80053; 85025; 87426; 94640; 96361; 96374; 99283; J1100; J3535; J7040

== ENCOUNTER 2021-05-03 11:30 | Outpatient (CLI) | payer MEDICARE, OTHER, SELFPAY ==
[2021-05-03 11:30] VITALS: BP 170/92; PULSE 105; RESP 20; TEMP 36.5; O2SAT 96; BMI 23.8
[2021-05-03 12:30] VITALS: BP 175/99; PULSE 106; RESP 20; TEMP 36.5; O2SAT 97
[2021-05-03 13:39] VITALS: BP 177/104; PULSE 98; RESP 18; TEMP 36.5; O2SAT 97
== END 2021-05-03 11:31 | disposition home or self-care (01) ==
LOC: OPS 17:32
PROVIDERS: PCP Family Medicine; Visit Provider Nurse Practitioner Family
DX: U07.1 COVID-19 (principal)
CPT/HCPCS: 96365

== ENCOUNTER 2021-05-31 21:33 | Emergency (ER) | payer MEDICARE, OTHER, SELFPAY ==
--- NOTE | 2021-05-31 21:37 | XRR_ITS ---
PROCEDURE INFORMATION: Exam: XR Chest Exam date and time: 05/31/2021 9:37 PM Age: 86 years old Clinical indication: Other: Headache; Additional info: Weakness TECHNIQUE: Imaging protocol: XR of the chest. Views: 1 view. COMPARISON: CR (CHEST, ) 04/29/2021 11:20 PM FINDINGS: Lungs: Unremarkable. No consolidation. Pleural spaces: Unremarkable. No pleural effusion. No pneumothorax. Heart/Mediastinum: Mild to moderate cardiomegaly. Bones/joints: Unremarkable. XR/XR chest 1V portable [id number] IMPRESSION: No focal acute pulmonary disease.
--- NOTE | 2021-05-31 21:37 | ECG_ITS ---
[facility] Test Date: 2021-05-31 Pat Name: Shivani Zepeda Department: Room: Gender: Female Informatica Developer: : [id number] Requested By: Bogdan Reyes Order Number: [id number] Joesph MD: Erna Saba M.D. Measurements Intervals Nelson Rate: 87 P: MO: QRS: 43 QRSD: 137 T: -32 QT: 373 QTc: 451 Interpretive Statements ATRIAL FIBRILLATION RIGHT BUNDLE BRANCH BLOCK [120+ ms QRS DURATION, UPRIGHT V1, 40+ ms S IN I/aVL/V4/V5/V6] Compared to ECG 07/17/2020 18:01:03 Right bundle-branch block now present Intraventricular conduction delay no longer present Electronically Signed On 06-02-2021 10:29:33 CRITICAL CARE TECHNICIAN by Erna Saba M.D. [id number]
--- NOTE | 2021-05-31 21:37 | CTR_ITS ---
PROCEDURE INFORMATION: Exam: CT Head Without Contrast Exam date and time: 05/31/2021 9:37 PM Age: 86 years old Clinical indication: Pain; Headache; Patient HX: BONE with hypertension. Family states she had facial droop at home. TECHNIQUE: Imaging protocol: Computed tomography of the head without contrast. Radiation optimization: All CT scans at this facility use at least one of these dose optimization techniques: automated exposure control; mA and/or kV adjustment per patient size (includes targeted exams where dose is matched to clinical indication); or iterative reconstruction. COMPARISON: CT head wo con* [id number] 06/05/2019 4:35 PM RADIATION DOSE METRICS: Total DLP (mGy-cm): 786.43 FINDINGS: Brain: There is marked cerebral atrophy. There is marked diffuse heterogeneity of the white matter attenuation, consistent with severe chronic white matter ischemic changes. Negative for intracranial hemorrhage. No midline shift of the brain. No intracranial mass. No acute brain ischemia identified. Cerebral ventricles: No ventriculomegaly. Paranasal sinuses: Visualized sinuses are unremarkable. No fluid levels. Mastoid air cells: Visualized mastoid air cells are well aerated. Bones/joints: Unremarkable. No acute fracture. Soft tissues: Unremarkable. CT/CT head wo con* [id number] IMPRESSION: 1. Negative for acute intracranial abnormality. 2. No significant change from comparison.
--- NOTE | 2021-05-31 21:37 | CTR_ITS ---
PROCEDURE INFORMATION: Exam: CT Angiography Head With Contrast, Arteriography Exam date and time: 05/31/2021 9:37 PM Age: 86 years old Clinical indication: Pain; Headache; Patient HX: BONE with hypertension. Family states she had facial droop at home. TECHNIQUE: Imaging protocol: Computed tomography angiography of the head with contrast. Exam focused on the arteries. 3D rendering (Not supervised by radiologist): MIP and/or 3D reconstructed images were created by the technologist. Radiation optimization: All CT scans at this facility use at least one of these dose optimization techniques: automated exposure control; mA and/or kV adjustment per patient size (includes targeted exams where dose is matched to clinical indication); or iterative reconstruction. Contrast material: OMNI 350; Contrast volume: 95 ml; Contrast route: INTRAVENOUS (IV); COMPARISON: CT head wo con* [id number] 05/31/2021 10:36 PM RADIATION DOSE METRICS: Total DLP (mGy-cm): 1605.8 FINDINGS: ANTERIOR CIRCULATION: Right internal carotid artery: Unremarkable. Intracranial segment is patent with no significant stenosis. No aneurysm. Right middle cerebral artery: Unremarkable. No occlusion or significant stenosis. No aneurysm. Right anterior cerebral artery: Unremarkable. No occlusion or significant stenosis. No aneurysm. Left internal carotid artery: Unremarkable. Intracranial segment is patent with no significant stenosis. No aneurysm. Left middle cerebral artery: Unremarkable. No occlusion or significant stenosis. No aneurysm. Left anterior cerebral artery: Unremarkable. No occlusion or significant stenosis. No aneurysm. POSTERIOR CIRCULATION: Right vertebral artery: Unremarkable. No occlusion or significant stenosis. No aneurysm. Left vertebral artery: Unremarkable. No occlusion or significant stenosis. No aneurysm. Basilar artery: Unremarkable. No occlusion or significant stenosis. No aneurysm. Right posterior cerebral artery: Unremarkable. No occlusion or significant stenosis. No aneurysm. Left posterior cerebral artery: Unremarkable. No occlusion or significant stenosis. No aneurysm. Brain: No definite mass, mass effect, or midline shift. Cerebral ventricles: No ventriculomegaly. Bones/joints: Unremarkable. No acute fracture. Soft tissues: Unremarkable. PROCEDURE INFORMATION: Exam: CT Angiography Neck With Contrast Exam date and time: 05/31/2021 9:37 PM Age: 86 years old Clinical indication: Pain; Headache; Patient HX: BONE with hypertension. Family states she had facial droop at home. TECHNIQUE: Imaging protocol: Computed tomography angiography of the neck with contrast. 3D rendering (Not supervised by radiologist): MIP and/or 3D reconstructed images were created by the technologist. Radiation optimization: All CT scans at this facility use at least one of these dose optimization techniques: automated exposure control; mA and/or kV adjustment per patient size (includes targeted exams where dose is matched to clinical indication); or iterative reconstruction. Contrast material: OMNI 350; Contrast volume: 95 ml; Contrast route: INTRAVENOUS (IV); COMPARISON: CT head wo con* [id number] 05/31/2021 10:36 PM RADIATION DOSE METRICS: Total DLP (mGy-cm): 1605.8 FINDINGS: Right common carotid artery: No stenosis. No dissection or occlusion. Right internal carotid artery: No stenosis of the extracranial segment. No dissection or occlusion. Right external carotid artery: No occlusion or stenosis of the origin. Left common carotid artery: No stenosis. No dissection or occlusion. Left internal carotid artery: No stenosis of the extracranial segment. No dissection or occlusion. Left external carotid artery: No occlusion or stenosis of the origin. Right vertebral artery: No stenosis. No dissection or occlusion. Left vertebral artery: No stenosis. No dissection or occlusion. Soft tissues: Normal. No significant soft tissue swelling. Bones/joints: The cervical spine demonstrates marked degenerative changes at multiple levels. Lungs: Emphysematous lung changes. Possible right upper lobe pulmonary nodule which is incompletely assessed measuring about 9 mm diameter, although the nodules motion distorted. CT/CT angio headneck* [id number] IMPRESSION: No intracranial large vessel significant stenosis or occlusion. IMPRESSION: 1. Less than 50% carotid artery stenosis. 2. Incidental right upper lobe pulmonary nodule. 3. Recommend outpatient surveillance with dedicated CT chest. REFERENCES: NASCET CRITERIA. The degree of internal carotid artery stenosis is based on NASCET criteria. Normal is no stenosis. Mild is less than 50% stenosis. Moderate is 50-69% stenosis. Severe is 70% to 99% stenosis. Total occlusion is no detectable patent lumen.
--- NOTE | 2021-05-31 21:38 | ED_ITS ---
HPI - Neuro Symptoms/Deficit General: Chief Complaint: Headache Stated Complaint: headache Time Seen by Provider: 05/31/21 21:33 Source: patient and EMS Mode of arrival: EMS Limitations: no limitations History of Present Illness: 86-year-old female who is here with EMS for mild headache along with some weakness. Family was concerned she may have a stroke if that she had some facial droop roughly 5 to 6 hours ago she did complain of a mild headache. Patient has no neuro deficits here she was able to ambulate at the home per EMS with a walker. States her headaches currently a 2 out of 10 she also gets very frequent urinary tract infections as well. Denies any cough or fever. Associated symptoms: Reports headache(s); Deny chest pain, nausea or vomiting Review of Systems Const: Denies: fever(s), chills, body aches or change in appetite Eyes: Denies: blurry vision or eye discomfort ENMT: Denies: throat pain or dental pain Card: Denies: chest pain Resp: Denies: dyspnea GI: Denies: abdominal pain, nausea, vomiting or diarrhea : Denies: dysuria Musc: Denies: neck pain or back pain Skin/Breast: Denies: rash Neuro: Reports: headache(s) Psych: Denies: depression Earl/Lymph: Denies: easy bruising All/Imm: Denies: urticaria PFS ED PFSH: Medical History (Updated 05/31/21 @ 23:22 by Bogdan Reyes MD) Atrial fibrillation GERD (gastroesophageal reflux disease) HTN (hypertension) Hypothyroidism Long-term (current) use of anticoagulants, INR goal 2.0-3.0 Severe mitral regurgitation Surgical History S/P tonsillectomy Family History Mother Dementia Heart disease Father Lung disease Social History Smoking and tobacco status: former smoker History of recent travel: No NIH stroke score NIHSS: Level Of Consciousness - 1a: 0 Level Of Consciousness Questions - 1b: Both Correct Level Of Consciousness Commands - 1c: Both Correct Best Gaze - 2: Normal Visual Harris - 3: No Visual Loss Facial Palsy - 4: Normal Motor Arm Right - 5: No Drift Motor Arm Left - 5: No Drift Motor Leg Right - 6: No Drift Motor Leg Left - 6: No Drift Limb Ataxia - 7: Absent Sensory - 8: Normal Best Language - 9: No Aphasia Dysarthia - 10: Normal Extinction And Inattention - 11: 0 Score: Total Score: 0 Physical Exam Const: COMMON NORMALS: no acute distress, patient oriented x3 and healthy appearing HENMT: COMMON NORMALS: normocephalic and atraumatic HEAD & SCALP: normocephalic and atraumatic Eye: COMMON NORMALS: Equal, round and reactive pupils present and EOMs intact bilaterally PUPIL: Yes Equal, round and reactive pupils present Neck/C-Spine: COMMON NORMALS: full ROM and supple Chest: COMMONS NORMALS: normal inspection of the chest and normal palpation of entire chest wall Resp: COMMON NORMALS: normal respiratory effort, No retractions, No use of accessory muscles and clear to auscultation bilaterally AUSCULTATION: clear to auscultation bilaterally Cardio: COMMON NORMALS: regular rate, regular rhythm and No murmurs present (Cardio) RATE: regular rate RHYTHM: regular rhythm GI: COMMON NORMALS: Normal to inspection, nondistended, normoactive bowel sounds present, Soft to palpation, non-tender and no masses PALPATION: Yes Soft to palpation Extremity: COMMON NORMALS: normal to inspection and full ROM Neuro: COMMON NORMALS: patient oriented x3, moves all extremities and no focal motor deficits Psych: COMMON NORMALS: mental status grossly normal, Normal thought process present and cooperative THOUGHT PROCESS: Normal thought process present Skin: COMMON NORMALS: no rashes or lesions noted and no wounds GENERAL SKIN EXAM: no rashes or lesions noted Course Vital Signs: Vital signs: Vital Signs Temperature 97.2 F L 05/31/21 21:39 Pulse Rate 88 05/31/21 23:22 Respiratory Rate 16 05/31/21 23:22 Blood Pressure 157/119 05/31/21 23:22 Pulse Oximetry 96 05/31/21 23:22 MDM - Neuro Symptoms/Deficit Medical Decision Making Patient presents here mild headache she was found to have a urinary tract infection likely causing her weakness she has no signs of a stroke here CT and CTA are normal we will place her on Keflex she is to follow-up with PCP and return if worsening. Lab Data : 05/31/21 20:53 05/31/21 22:30 Radiology Impressions Chest X-Ray 05/31/21 21:37 IMPRESSION: No focal acute pulmonary disease. Head CT 05/31/21 21:37 IMPRESSION: 1. Negative for acute intracranial abnormality. 2. No significant change from comparison. Head/Neck CTA 05/31/21 21:37 IMPRESSION: No intracranial large vessel significant stenosis or occlusion. IMPRESSION: 1. Less than 50% carotid artery stenosis. 2. Incidental right upper lobe pulmonary nodule. 3. Recommend outpatient surveillance with dedicated CT chest. REFERENCES: NASCET CRITERIA. The degree of internal carotid artery stenosis is based on NASCET criteria. Normal is no stenosis. Mild is less than 50% stenosis. Moderate is 50-69% stenosis. Severe is 70% to 99% stenosis. Total occlusion is no detectable patent lumen. Laboratory Results WBC 8.7 10^3/uL (4.0-10.0) 05/31/21 20:53 RBC 4.52 10^6/uL (4.1-5.3) 05/31/21 20:53 Hgb 13.0 g/dL (11.5-15.3) 05/31/21 20:53 Hct 41.0 % (37.0-47.0) 05/31/21 20:53 MCV 90.7 fl (81-99) 05/31/21 20:53 MCH 28.8 pg (28.0-34.0) 05/31/21 20:53 MCHC 31.7 g/dL (30.0-36.0) 05/31/21 20:53 RDW 16.2 % (12.1-15.1) H 05/31/21 20:53 Plt Count 217 10^3/cmm (130-400) 05/31/21 20:53 MPV 10.6 fL (7.4-10.4) H 05/31/21 20:53 Neut % (Auto) 66.1 % 05/31/21 20:53 Lymph % (Auto) 21.4 % 05/31/21 20:53 [place] % (Auto) 11.4 % 05/31/21 20:53 Eos % (Auto) 0.0 % 05/31/21 20:53 Baso % (Auto) 0.5 % 05/31/21 20:53 Neut # (Auto) 5.76 10^3/uL (1.8-7.7) 05/31/21 20:53 Lymph # (Auto) 1.9 10^3/uL (0.8-4.8) 05/31/21 20:53 [place] # (Auto) 1.0 10^3/uL (0.2-0.9) H 05/31/21 20:53 Eos # (Auto) 0.0 10^3/uL (0.0-0.8) 05/31/21 20:53 Baso # (Auto) 0.0 10^3/uL (0.0-0.1) 05/31/21 20:53 Nucleated RBC % (auto) 0 % 05/31/21 20:53 Nucleated RBCs # 0.0 /100WBC 05/31/21 20:53 PT 22.80 SECONDS (12.1-14.9) H 05/31/21 20:53 INR 1.97 (0.8-1.2) H 05/31/21 20:53 Sodium 136 mmol/L (136-145) 05/31/21 22:30 Potassium 4.4 mmol/L (3.5-5.1) 05/31/21 22:30 Chloride 105 mmol/L (98-107) 05/31/21 22:30 Carbon Dioxide 22 mmol/L (22-29) 05/31/21 22:30 Anion Gap 13.4 (5-19) 05/31/21 22:30 BUN 21 mg/dL (8-23) 05/31/21 22:30 Creatinine 0.6 mg/dL (0.5-0.9) 05/31/21 22:30 GFR Calculation Not Reportable 05/31/21 22:30 Glucose 122 mg/dL (65-115) H 05/31/21 22:30 Calculated Osmolality 286 mOsm/kg (285-295) 05/31/21 22:30 Calcium 9.0 mg/dL (8.5-10.5) 05/31/21 22:30 Total Bilirubin 0.8 mg/dL (0.15-1.2) 05/31/21 22:30 AST 15 U/L (0-32) 05/31/21 22:30 ALT 11 U/L (0-33) 05/31/21 22:30 Alkaline Phosphatase 104 IU/L (35-105) 05/31/21 22:30 Total Protein 6.9 g/dL (6.6-8.7) 05/31/21 22:30 Albumin 3.6 g/dL (3.5-5.2) 05/31/21 22:30 Globulin 3.3 g/dL (1.3-4.6) 05/31/21 22:30 Urine Color Yellow (Yellow) 05/31/21 23:10 Urine Appearance Sl cloudy (CLEAR) A 05/31/21 23:10 Urine pH 8 (5-7) H 05/31/21 23:10 Ur Specific [place] 1.010 (1.005-1.030) 05/31/21 23:10 Urine Protein 2+ (Negative) H 05/31/21 23:10 Urine Glucose (UA) Norm (Normal) 05/31/21 23:10 Urine Ketones Negative (Negative) 05/31/21 23:10 Urine Blood 2+ (Negative) H 05/31/21 23:10 Urine Nitrate Positive (Negative) H 05/31/21 23:10 Urine Bilirubin Neg (Negative) 05/31/21 23:10 Urine Urobilinogen 1 mg/dL (Negative) H 05/31/21 23:10 Ur Leukocyte Esterase 2+ (Negative) H 05/31/21 23:10 Urine RBC 0-4 /hpf (0-2) H 05/31/21 23:10 Urine WBC 5-10 /hpf (0-5) H 05/31/21 23:10 Ur Squamous Epith Cells 55-80 /hpf (0-5) H 05/31/21 23:10 Amorphous Sediment Not Reportable 05/31/21 23:10 Urine Bacteria 4+ /hpf (NONE) H 05/31/21 23:10 EKG Data EKG 1: I personally reviewed and interpreted this EKG as follows: EKG interpretation date: 05/31/21 EKG interpretation time: 21:54 Interpretation: afib hr [address] or t wave abnormalities qrs 137 qtc 418 Discharge Plan Discharge Patient Disposition: Home Clinical Impression: Acute cystitis, Weakness Condition: Stable Prescriptions: New cephalexin 500 mg capsule 500 mg PO TID 7 Days Qty: 21 0RF No Action levothyroxine 88 mcg capsule 88 mcg PO DAILY@1100 0RF hydrochlorothiazide 12.5 mg tablet 12.5 mg PO BID Qty: 180 3RF isosorbide mononitrate 30 mg tablet extended release 24 hr 15 mg PO BID Qty: 90 3RF trimethoprim 100 mg tablet 100 mg PO DAILY 0RF warfarin 2 mg tablet 2 mg PO DAILY 90 Days Qty: 90 3RF Protocol: Dose Management Condition: Friday Dose/Route: 1 mg Instruction: 1 x 1 mg tablet Condition: Friday Dose/Route: 2 mg Instruction: 1 x 2 mg tablet Condition: Friday Dose/Route: 1 mg Instruction: 1 x 1 mg tablet Condition: Friday Dose/Route: 1 mg Instruction: 1 x 1 mg tablet Condition: Dose/Route: 2 mg Instruction: 1 x 2 mg tablet Condition: Friday Dose/Route: 1 mg Instruction: 1 x 1 mg tablet Condition: Friday Dose/Route: 2 mg Instruction: 1 x 2 mg tablet Protocol Text: Adjustment Start Date: 05/31/21 INR Value: 1.9 INR Date: 05/29/21 Rx Instructions: take on Friday, and Friday felodipine 10 mg tablet extended release 24 hr 10 mg PO DAILY PRN (Reason: BP >140) Qty: 30 0RF warfarin 1 mg tablet 1 mg PO BID 90 Days Qty: 180 3RF Protocol: Dose Management Condition: Friday Dose/Route: 1 mg Instruction: 1 x 1 mg tablet Condition: Friday Dose/Route: 2 mg Instruction: 1 x 2 mg tablet Condition: Friday Dose/Route: 1 mg Instruction: 1 x 1 mg tablet Condition: Friday Dose/Route: 1 mg Instruction: 1 x 1 mg tablet Condition: Dose/Route: 2 mg Instruction: 1 x 2 mg tablet Condition: Friday Dose/Route: 1 mg Instruction: 1 x 1 mg tablet Condition: Friday Dose/Route: 2 mg Instruction: 1 x 2 mg tablet Protocol Text: Adjustment Start Date: 05/31/21 INR Value: 1.9 INR Date: 05/29/21 Rx Instructions: take as directed according to inr results. latanoprost 0.005 % drops 1 drp ophthalmic (eye) BID 0RF Rx Instructions: (both eyes) timolol maleate 0.25 % drops 1 drp ophthalmic (eye) DAILY 0RF Rx Instructions: (both eyes) Myrbetriq 25 mg tablet extended release 24 hr 25 mg PO DAILY 0RF PreserVision AREDS [id number] tablet 1 tab PO BID 0RF valsartan 80 mg tablet 160 mg PO BID 0RF Discharge Orders: Discharge ED (Routine); Ordered 05/31/21 Ordered By: Bogdan Reyes Referrals: Juan Ramon Diamond DO [Primary Care Provider] - 1-3 days Discharge Diet: Advance as tolerated Discharge Activity: Resume usual activity Patient Instructions: Urinary Tract Infection in Women (DC) Coding Level of Care Code ED Real Estate Leasing Agent for Chg Fwd Exam Comprehensive
[2021-05-31 21:39] VITALS: BP 187/134; PULSE 96; RESP 16; TEMP 36.2; O2SAT 100; BMI 26.5
[2021-05-31 21:56] LABS: Basophils % 0.5 %; Lymphocytes # 1.9 10^3/uL (0.8-4.8); Lymphocytes % 21.4 %; Mean Corpuscular HGB Conc 31.7 g/dL (30.0-36.0); Mean Corpuscular Hemoglobin 28.8 pg (28.0-34.0); Mean Corpuscular Volume 90.7 fl (81-99); Mean Platelet Volume 10.6 fL (7.4-10.4); Monocytes % 11.4 %; Neutrophils # 5.76 10^3/uL (1.8-7.7); Neutrophils % 66.1 %; Nucleated Red Blood Cells % 0 %; Platelet Count 217 10^3/cmm (130-400); Red Blood Count 4.52 10^6/uL (4.1-5.3); Red Cell Distribution Width 16.2 % (12.1-15.1); White Blood Count 8.7 10^3/uL (4.0-10.0)
[2021-05-31] MEDS: labetalol 5 mg/mL SDV 20mL 10 MG IVP (22:03)
[2021-05-31 22:08] LABS: INR 1.97 (0.8-1.2)
[2021-05-31] MEDS: iohexol 350 mg/mL 100 mL Btl IV (22:39)
[2021-05-31 23:04] LABS: Alanine Aminotransferase 11 U/L (0-33); Albumin Level 3.6 g/dL (3.5-5.2); Alkaline Phosphatase 104 IU/L (35-105); Anion Gap 13.4 (5-19); Aspartate Amino Transferase 15 U/L (0-32); Blood Urea Nitrogen 21 mg/dL (8-23); Carbon Dioxide 22 mmol/L (22-29); Chloride 105 mmol/L (98-107); Globulin 3.3 g/dL (1.3-4.6); Glucose 122 mg/dL (65-115); Osmolality Calculated 286 mOsm/kg (285-295); Potassium 4.4 mmol/L (3.5-5.1); Sodium 136 mmol/L (136-145); Total Bilirubin 0.8 mg/dL (0.15-1.2); Total Protein 6.9 g/dL (6.6-8.7)
[2021-05-31 23:19] LABS: Add Urine Culture? No; Add Urine Microscopic? YES; Bacteria Urine 4+ /hpf; Bilirubin Urine Neg (Negative); Blood Urine 2+ (Negative); Glucose Urine UA Norm (Normal); Ketones Urine Negative (Negative); Leukocyte Esterase Urine 2+ (Negative); Nitrate Urine Positive (Negative); Protein Urine 2+ (Negative); RBC Urine 0-4 /hpf (0-2); Squamous Epithelial Cell Urine 55-80 /hpf (0-5); Urine Color Yellow (Yellow); Urobilinogen Urine 1 mg/dL (Negative); pH Urine 8 (5-7)
[2021-05-31 23:22] VITALS: BP 157/119; PULSE 88; RESP 16; O2SAT 96
[2021-05-31] MEDS: cephALEXin 500 mg Capsule PO (23:30)
[2021-05-31 23:43] VITALS: BP 155/98; PULSE 86; RESP 16; O2SAT 94
== END 2021-05-31 23:44 | disposition home or self-care (01) ==
PROVIDERS: Emergency Provider Emergency Medicine; PCP Family Medicine
DX: N30.00 Acute cystitis without hematuria (principal); R53.1 Weakness; Z79.01 Long term (current) use of anticoagulants; I10 Essential (primary) hypertension; Z87.891 Personal history of nicotine dependence
CPT/HCPCS: 70450; 70496; 70498; 71045; 80053; 81001; 85025; 85610; 93005; 96374; 99283; J3490; Q9967

== ENCOUNTER → 2021-06-13 16:00 | Outpatient (BNVA) | payer MEDICARE, OTHER, SELFPAY | PROVIDERS: PCP Family Medicine; Visit Provider Internal Medicine Cardiovascular Disease | DX: Z79.01 Long term (current) use of anticoagulants (principal) ==

== ENCOUNTER → 2021-07-02 10:41 | Outpatient (BNVA) | payer MEDICARE, OTHER, SELFPAY | PROVIDERS: PCP Family Medicine; Visit Provider Internal Medicine Cardiovascular Disease | DX: Z79.01 Long term (current) use of anticoagulants (principal) ==

== ENCOUNTER → 2021-07-10 08:49 | Outpatient (BNVA) | payer MEDICARE, OTHER, SELFPAY | PROVIDERS: PCP Family Medicine; Visit Provider Internal Medicine Cardiovascular Disease | DX: I48.19 Other persistent atrial fibrillation (principal); Z79.01 Long term (current) use of anticoagulants ==

== ENCOUNTER → 2021-07-11 13:43 | Outpatient (BNVA) | payer MEDICARE, OTHER, SELFPAY | PROVIDERS: PCP Family Medicine; Visit Provider Internal Medicine Cardiovascular Disease | DX: I34.0 Nonrheumatic mitral (valve) insufficiency (principal); Z87.891 Personal history of nicotine dependence; I48.19 Other persistent atrial fibrillation; I10 Essential (primary) hypertension | CPT/HCPCS: 99214 ==

== ENCOUNTER → 2021-08-01 14:10 | Outpatient (BNVA) | payer MEDICARE, OTHER, SELFPAY | PROVIDERS: PCP Family Medicine; Visit Provider Nurse Practitioner Family | DX: I10 Essential (primary) hypertension (principal); I48.19 Other persistent atrial fibrillation; Z79.01 Long term (current) use of anticoagulants; Z87.891 Personal history of nicotine dependence | CPT/HCPCS: 99214 ==

== ENCOUNTER → 2021-08-10 09:07 | Outpatient (BNVA) | payer MEDICARE, OTHER, SELFPAY | PROVIDERS: PCP Family Medicine; Visit Provider Internal Medicine Cardiovascular Disease | DX: Z79.01 Long term (current) use of anticoagulants (principal) ==

== ENCOUNTER → 2021-08-28 13:45 | Outpatient (BNVA) | payer MEDICARE, OTHER, SELFPAY | PROVIDERS: PCP Family Medicine; Visit Provider Internal Medicine Cardiovascular Disease | DX: Z79.01 Long term (current) use of anticoagulants (principal) ==

== ENCOUNTER → 2021-09-06 15:00 | Outpatient (BNVA) | payer MEDICARE, OTHER, SELFPAY | PROVIDERS: PCP Family Medicine; Visit Provider Internal Medicine Cardiovascular Disease | DX: Z79.01 Long term (current) use of anticoagulants (principal) ==

== ENCOUNTER → 2021-09-14 10:06 | Outpatient (BNVA) | payer MEDICARE, OTHER, SELFPAY | PROVIDERS: PCP Family Medicine; Visit Provider Internal Medicine Cardiovascular Disease | DX: Z79.01 Long term (current) use of anticoagulants (principal) ==

== ENCOUNTER → 2021-10-03 16:40 | Outpatient (BNVA) | payer MEDICARE, OTHER, SELFPAY | PROVIDERS: PCP Family Medicine; Visit Provider Internal Medicine Cardiovascular Disease | DX: Z79.01 Long term (current) use of anticoagulants (principal) ==

== ENCOUNTER → 2021-10-12 10:53 | Outpatient (BNVA) | payer MEDICARE, OTHER, SELFPAY | PROVIDERS: PCP Family Medicine; Visit Provider Internal Medicine Cardiovascular Disease | DX: Z79.01 Long term (current) use of anticoagulants (principal) ==

== ENCOUNTER → 2021-10-31 09:18 | Outpatient (BNVA) | payer MEDICARE, OTHER, SELFPAY | PROVIDERS: PCP Family Medicine; Visit Provider Internal Medicine Cardiovascular Disease | DX: Z79.01 Long term (current) use of anticoagulants (principal) ==

== ENCOUNTER → 2022-01-09 14:16 | Outpatient (BNVA) | payer MEDICARE, OTHER, SELFPAY | PROVIDERS: PCP Family Medicine; Visit Provider Internal Medicine Cardiovascular Disease | DX: I34.0 Nonrheumatic mitral (valve) insufficiency (principal); I48.19 Other persistent atrial fibrillation; Z79.01 Long term (current) use of anticoagulants; I10 Essential (primary) hypertension; Z87.891 Personal history of nicotine dependence | CPT/HCPCS: 99214 ==

== ENCOUNTER → 2022-02-12 16:21 | Outpatient (BNVA) | payer MEDICARE, OTHER, SELFPAY | PROVIDERS: PCP Family Medicine | DX: N39.0 Urinary tract infection, site not specified (principal); Z23 Encounter for immunization | CPT/HCPCS: 81000 ==

== ENCOUNTER → 2022-02-13 10:31 | Outpatient (BNVA) | payer MEDICARE, OTHER, SELFPAY | PROVIDERS: PCP Family Medicine; Visit Provider Family Medicine | DX: R30.0 Dysuria (principal); N39.0 Urinary tract infection, site not specified | CPT/HCPCS: 87086 ==

== ENCOUNTER 2022-02-19 14:08 | Emergency (ER) | payer MEDICARE, OTHER, SELFPAY ==
[2022-02-19 14:10] VITALS: BP 179/60; PULSE 90; RESP 18; O2SAT 100
[2022-02-19 14:28] VITALS: BP 148/93; O2SAT 98
[2022-02-19 14:30] VITALS: BP 153/115; O2SAT 98
--- NOTE | 2022-02-19 14:35 | ED_ITS ---
HPI - General Adult General: Chief complaint: General Medical Stated complaint: BOWEL PROBLEMS Time Seen by Provider: 02/19/22 14:34 Source: family Mode of arrival: ambulatory History of Present Illness: 87 yo female patient is having difficulty with urination. She was recently treated for a bladder infection but a culture was n egative she feels that she has difficult time initiating urine stream even with Valsalva and then at other times seems like the urine is uncontrolled. They are helping with perineal care today and felt a bulge were concerned and wanted her to be evaluated she not had any rectal bleeding no fever sweats or chills. Location: genitals Radiation: non-radiation Relieving factors: none Exacerbating factors: none Associated symptoms: Reports confusion; Deny chest pain, cough, diaphoresis, decreased appetite, dyspnea, fevers/chills, headache(s), malaise, nausea, rash, palpitations, seizures, short of breath, syncope, vomiting or weakness Review of Systems Const: Denies: fever(s), chills, fatigue, malaise or diaphoresis ENMT: Denies: throat pain, ear or mastoid pain, nasal discharge or nasal congestion Card: Denies: chest pain, palpitations or syncope Resp: Denies: dyspnea GI: Denies: abdominal pain, nausea or vomiting : Denies: flank pain, difficulty voiding, dysuria, urinary frequency or urinary urgency Musc: Denies: neck pain, back pain or extremity pain Skin/Breast: Denies: rash or pruritus Neuro: Reports: confusion; Denies: headache(s) [facility] ED PFSH: Medical History Atrial fibrillation GERD (gastroesophageal reflux disease) HTN (hypertension) Hypothyroidism Long-term (current) use of anticoagulants, INR goal 2.0-3.0 Severe mitral regurgitation Surgical History S/P tonsillectomy Family History Mother Dementia Heart disease Father Lung disease Social History Smoking and tobacco status: former smoker History of recent travel: No Physical Exam Const: COMMON NORMALS: no acute distress GENERAL APPEARANCE: cooperative and comfortable ORIENTATION/CONSCIOUSNESS: Yes awake HENMT: COMMON NORMALS: normocephalic, atraumatic and hearing grossly normal b ilaterally HEAD & SCALP: normocephalic and atraumatic Resp: COMMON NORMALS: normal respiratory effort, No retractions, No use of accessory muscles and clear to auscultation bilaterally AUSCULTATION: clear to auscultation bilaterally Cardio: COMMON NORMALS: regular rate, regular rhythm and No murmurs present (Cardio) RATE: regular rate RHYTHM: regular rhythm GI: COMMON NORMALS: Soft to palpation and No hepatosplenomegaly present AUSCULTATION: Yes normoactive bowel sounds PALPATION: Yes Soft to palpation, No Tenderness to palpation present (GI), No Guarding due to palpation present (GI) and Yes No hepatosplenomegaly present : COMMON NORMALS: Yes no CVA tenderness BLADDER/KIDNEY EXAM: Yes no CVA tenderness OTHER: Perineal examination patient has uterine prolapse it is reducible but prolapses significantly from the vaginal canal. Back/Pelvis: COMMON NORMALS: no CVA tenderness Extremity: COMMON NORMALS: normal to inspection, capillary refill normal, no clubbing, cyanosis or edema, no calf tenderness and no pedal edema Skin: COMMON NORMALS: no rashes or lesions noted GENERAL SKIN EXAM: no rashes or lesions noted Course Vital Signs: Vital signs: Vital Signs Pulse Rate 90 02/19/22 14:10 Respiratory Rate 18 02/19/22 14:10 Blood Pressure 153/115 02/19/22 15:00 Pulse Oximetry 95 02/19/22 15:00 Oxygen Delivery Me thod 02/19/22 14:10 MDM - General Adult Medical Decision Making Refer to gynecology for evaluation for treatment options. Discussed with the family. Medical Records I reviewed the patient's medical records. Lab Data I reviewed the patient's lab results. : 02/19/22 14:20 02/19/22 14:20 Laboratory Results WBC 12.2 10^3/uL (4.0-10.0) H 02/19/22 14:20 RBC 4.52 10^6/uL (4.1-5.3) 02/19/22 14:20 Hgb 13.7 g/dL (11.5-15.3) 02/19/22 14:20 Hct 42.0 % (37.0-47.0) 02/19/22 14:20 MCV 92.9 fl (81-99) 02/19/22 14:20 MCH 30.3 pg (28.0-34.0) 02/19/22 14:20 MCHC 32.6 g/dL (30.0-36.0) 02/19/22 14:20 RDW 14.4 % (12.1-15.1) 02/19/22 14:20 Plt Count 265 10^3/cmm (130-400) 02/19/22 14:20 MPV 10.0 fL (7.4-10.4) 02/19/22 14:20 Neut % (Auto) 77.0 % 02/19/22 14:20 Lymph % (Auto) 12.7 % 02/19/22 14:20 [place] % (Auto) 9.0 % 02/19/22 14:20 Eos % (Auto) 0.0 % 02/19/22 14:20 Baso % (Auto) 0.3 % 02/19/22 14:20 Neut # (Auto) 9.38 10^3/uL (1.8-7.7) H 02/19/22 14:20 Lymph # (Auto) 1.5 10^3/uL (0.8-4.8) 02/19/22 14:20 [place] # (Auto) 1.1 10^3/uL (0.2-0.9) H 02/19/22 14:20 Eos # (Auto) 0.0 10^3/uL (0.0-0.8) 02/19/22 14:20 Baso # (Auto) 0.0 10^3/uL (0.0-0.1) 02/19/22 14:20 Nucleated RBC % (auto) 0 % 02/19/22 14:20 Nucleated RBCs # 0.0 /100WBC 02/19/22 14:20 Sodium 136 mmol/L (136-145) 02/19/22 14:20 Potassium 5.2 mmol/L (3.5-5.1) H 02/19/22 14:20 Chloride 101 mmol/L (98-107) 02/19/22 14:20 Carbon Dioxide 26 mmol/L (22-29) 02/19/22 14:20 Anion Gap 14.2 (5-19) 02/19/22 14:20 BUN 21 mg/dL (8-23) 02/19/22 14:20 Creatinine 0.8 mg/dL (0.5-0.9) 02/19/22 14:20 GFR Calculation Not Reportable 02/19/22 14:20 Glucose 114 mg/dL (65-115) 02/19/22 14:20 Calculated Osmolality 286 mOsm/kg (285-295) 02/19/22 14:20 Calcium 9.4 mg/dL (8.5-10.5) 02/19/22 14:20 Total Bilirubin 0.3 mg/dL (0.15-1.2) 02/19/22 14:20 AST 26 U/L (0-32) 02/19/22 14:20 ALT 20 U/L (0-33) 02/19/22 14:20 Alkaline Phosphatase 130 U/L (35-105) H 02/19/22 14:20 Total Protein 7.8 g/dL (6.6-8.7) 02/19/22 14:20 Albumin 3.9 g/dL (3.5-5.2) 02/19/22 14:20 Globulin 3.9 g/dL (1.3-4.6) 02/19/22 14:20 Lipase 65 U/L (13-60) H 02/19/22 14:20 Discharge Plan Discharge Patient Disposition: Home Clinical Impression: Prolapse of uterus Condition: Stable Prescriptions: No Action felodipine 5 mg tablet extended release 24 hr 5 mg PO DAILY Qty: 90 3RF benzonatate 200 mg capsule 200 mg PO BID PRN hydrochlorothiazide 12.5 mg capsule 12.5 mg PO BID PRN warfarin 2 mg tablet 2 mg PO DAILY 90 Days Qty: 90 3RF Protocol: Dose Management Condition: Friday Dose/Route: 2 mg Instruction: 1 x 2 mg tablet Condition: Friday Dose/Route: 2 mg Instruction: 1 x 2 mg tablet Condition: Friday Dose/Route: 2 mg Instruction: 1 x 2 mg tablet Condition: Friday Dose/Route: 1 mg Instruction: 1 x 1 mg tablet Condition: Dose/Route: 2 mg Instruction: 1 x 2 mg tablet Condition: Friday Dose/Route: 1 mg Instruction: 1 x 1 mg tablet Condition: Friday Dose/Route: 2 mg Instruction: 1 x 2 mg tablet Protocol Text: Adjustment Start Date: 02/07/22 INR Value: 2.5 INR Date: 02/06/22 Recheck Date: 02/14/22 Rx Instructions: take on Friday, and Friday isosorbide mononitrate 30 mg tablet extended release 24 hr 15 mg PO BID Qty: 90 3RF valsartan 80 mg tablet 80 mg PO BID Qty: 180 2RF mupirocin 2 % ointment 1 applic topical TID Qty: 22 3RF warfarin 1 mg tablet 1 mg PO DIRECTED Qty: 180 3RF Protocol: Dose Management Condition: Friday Dose/Route: 2 mg Instruction: 1 x 2 mg tablet Condition: Friday Dose/Route: 2 mg Instruction: 1 x 2 mg tablet Condition: Friday Dose/Route: 2 mg Instruction: 1 x 2 mg tablet Condition: Friday Dose/Route: 1 mg Instruction: 1 x 1 mg tablet Condition: Dose/Route: 2 mg Instruction: 1 x 2 mg tablet Condition: Friday Dose/Route: 1 mg Instruction: 1 x 1 mg tablet Condition: Friday Dose/Route: 2 mg Instruction: 1 x 2 mg tablet Protocol Text: Adjustment Start Date: 02/07/22 INR Value: 2.5 INR Date: 02/06/22 Recheck Date: 02/14/22 Rx Instructions: Take as directed according to INR results. trimethoprim 100 mg tablet 100 mg PO DAILY Qty: 30 5RF levothyroxine 100 mcg tablet 100 mcg PO DAILY Qty: 90 1RF ciprofloxacin HCl 500 mg tablet 500 mg PO BID Qty: 14 0RF latanoprost 0.005 % drops 1 drp ophthalmic (eye) BID Rx Instructions: (both eyes) timolol maleate 0.25 % drops 1 drp ophthalmic (eye) DAILY Rx Instructions: (both eyes) Myrbetriq 25 mg tablet extended release 24 hr 25 mg PO DAILY PreserVision AREDS [id number] tablet 1 tab PO BID Discharge Orders: Discharge ED (Routine); Ordered 02/19/22 Ordered By: Ramon Desouza Referrals: Juan Ramon Diamond DO [Primary Care Provider] - Discharge Diet: Usual diet Discharge Activity: Resume usual activity Patient Instructions: Opioid Safety, Pain Management Activity Restrictions/Additional Instructions: housing manager will make a referral to gynecology clinic for you for the prolapsed uterus Coding Level of Care Code ED Machine Learning Intern for Juan Lindsay
[2022-02-19 14:38] LABS: Basophils % 0.3 %; Hemoglobin 13.7 g/dL (11.5-15.3); Lymphocytes # 1.5 10^3/uL (0.8-4.8); Lymphocytes % 12.7 %; Mean Corpuscular HGB Conc 32.6 g/dL (30.0-36.0); Mean Corpuscular Hemoglobin 30.3 pg (28.0-34.0); Mean Corpuscular Volume 92.9 fl (81-99); Monocytes # 1.1 10^3/uL (0.2-0.9); Neutrophils # 9.38 10^3/uL (1.8-7.7); Nucleated Red Blood Cells % 0 %; Platelet Count 265 10^3/cmm (130-400); Red Blood Count 4.52 10^6/uL (4.1-5.3); Red Cell Distribution Width 14.4 % (12.1-15.1); White Blood Count 12.2 10^3/uL (4.0-10.0)
[2022-02-19 14:51] LABS: Albumin Level 3.9 g/dL (3.5-5.2); Alkaline Phosphatase 130 U/L (35-105); Blood Urea Nitrogen 21 mg/dL (8-23); Calcium 9.4 mg/dL (8.5-10.5); Carbon Dioxide 26 mmol/L (22-29); Chloride 101 mmol/L (98-107); Globulin 3.9 g/dL (1.3-4.6); Glucose 114 mg/dL (65-115); Lipase 65 U/L (13-60); Osmolality Calculated 286 mOsm/kg (285-295); Sodium 136 mmol/L (136-145); Total Bilirubin 0.3 mg/dL (0.15-1.2); Total Protein 7.8 g/dL (6.6-8.7)
[2022-02-19 14:55] LABS: Alanine Aminotransferase 20 U/L (0-33); Anion Gap 14.2 (5-19); Aspartate Amino Transferase 26 U/L (0-32); Potassium 5.2 mmol/L (3.5-5.1)
[2022-02-19 15:00] VITALS: BP 153/115; O2SAT 95
--- NOTE | 2022-02-20 08:44 | DCPLANNER ---
Addendum entered by Elma Maxwell 03/04/22 16:27: Patient had a follow up appointment scheduled for 02.25.22 at [facility] - patient did attend appointment. Original Note: manager bench had message to schedule a follow up appointment for patient with [facility]. manager bench sent patients information to the front office staff at [facility]. Patients information will be printed and reviewed. Clinic will call patient with appointment information.
== END 2022-02-19 15:12 | disposition home or self-care (01) ==
PROVIDERS: Emergency Provider Family Medicine; PCP Family Medicine
DX: N81.4 Uterovaginal prolapse, unspecified (principal); I10 Essential (primary) hypertension; Z79.01 Long term (current) use of anticoagulants; Z87.891 Personal history of nicotine dependence
CPT/HCPCS: 80053; 81000; 83690; 85025; 87086; 99283

== ENCOUNTER → 2022-07-18 15:28 | Outpatient (BNVA) | payer MEDICARE, OTHER, SELFPAY | PROVIDERS: PCP Family Medicine; Visit Provider Family Medicine | DX: E03.9 Hypothyroidism, unspecified (principal); I10 Essential (primary) hypertension; I34.0 Nonrheumatic mitral (valve) insufficiency; N30.90 Cystitis, unspecified without hematuria; I48.19 Other persistent atrial fibrillation | CPT/HCPCS: 80053; 82607; 84443; 85025 ==

== ENCOUNTER → 2022-10-01 11:28 | Outpatient (BNVA) | payer MEDICARE, OTHER, SELFPAY | PROVIDERS: PCP Family Medicine; Visit Provider Internal Medicine Cardiovascular Disease | DX: I34.0 Nonrheumatic mitral (valve) insufficiency (principal); I48.19 Other persistent atrial fibrillation; I10 Essential (primary) hypertension; E03.9 Hypothyroidism, unspecified; K21.9 Gastro-esophageal reflux disease without esophagitis; Z79.01 Long term (current) use of anticoagulants | CPT/HCPCS: 99214 ==

== ENCOUNTER → 2022-10-10 13:50 | Outpatient (BNVA) | payer MEDICARE, OTHER, SELFPAY | PROVIDERS: PCP Family Medicine; Visit Provider Family Medicine | DX: E53.8 Deficiency of other specified B group vitamins (principal); R53.1 Weakness; E03.9 Hypothyroidism, unspecified; I10 Essential (primary) hypertension; I48.91 Unspecified atrial fibrillation | CPT/HCPCS: 80053; 82607; 84443 ==

== ENCOUNTER 2022-10-17 12:40 | Outpatient (CLI) | payer MEDICARE, OTHER, SELFPAY ==
--- NOTE | 2022-10-17 13:00 | USCV_ITS ---
Shivani Zepeda Age: 87 Gender: F : 1935 Exam Date: 10/17/2022 13:13 Ordering Phys: Erna Saba MD ([email or web address]) Technologist: Dalia Ribeiro Exam Location: [facility] Indication: valve insufficiency BP: 128 / 70 HR: 79 Rhythm: Sinus Technical Quality: Adequate MEASUREMENTS (Male / Female) Normal Values 2D ECHO LV Diastolic Diameter PLAX 3.6 cm 4.2 - 5.9 / 3.9 - 5.3 cm LV Systolic Diameter PLAX 1.9 cm IVS Diastolic Thickness 1.1 cm 0.6 - 1.0 / 0.6 - 0.9 cm IVS Systolic Thickness 0.9 cm LVPW Diastolic Thickness 1.2 cm 0.6 - 1.0 / 0.6 - 0.9 cm LVPW Systolic Thickness 2.1 cm LVOT Diameter 2.1 cm LV Ejection Fraction 2D Teich 69.8 % LV Ejection Fraction MOD 2C 61.5 % LV Ejection Fraction 2C AL 63.3 % LA Diameter 4.6 cm LA Width 5.0 cm LA Height 5.1 cm RA Width 3.2 cm RA Height 5.0 cm Aorta at Sinotubular Diameter 2.6 cm IVC Diameter 2.2 cm M-MODE Aortic Annulus Diameter 2.7 cm LA Ao Ratio MM 1.5 MV E Point Septal Separation 0.2 cm DOPPLER AV Peak Velocity 118.7 cm/s LVOT Peak Velocity 86.0 cm/s AV Area Cont Eq vti 2.4 cm squared AV Area Cont Eq pk 2.5 cm squared MV Peak Velocity 119.0 cm/s MV Area PHT 5.4 cm squared Mitral E to A Ratio 3.7 MV E' Velocity 60.0 cm/s Mitral E to MV E' Ratio 7.2 Mitral E to LV E' Lateral Ratio 6.6 Mitral E to LV E' Septal Ratio 8.2 TR Peak Velocity 236.2 cm/s TR Peak Gradient 22.3 mmHg Right Atrial Pressure 5.0 mmHg Pulmonary Artery Systolic Pressu 27.3 mmHg PV Peak Velocity 78.0 cm/s RV Acceleration Time 0.1 s RV Ejection Time 0.3 s RV AcT/ET 0.4 FINDINGS Left Ventricle Normal left ventricular size, systolic function and wall thickness, with no regional wall motion abnormalities. Left ventricular ejection fraction is estimated at 55-60%. Rhythm precludes evaluation of diastolic function. Right Ventricle Normal right ventricular size and systolic function. Right ventricular systolic pressure 35 mmHg. Right Atrium Moderately increased right atrial size. Left Atrium Moderately to severely increased left atrial size. Mitral Valve Mild mitral annular calcification. Mildly thickened mitral valve. No mitral valve stenosis. Moderate mitral valve regurgitation. Aortic Valve Aortic valve not well visualized. No aortic valve stenosis. Mild aortic valve regurgitation. Tricuspid Valve Structurally normal tricuspid valve. No tricuspid valve stenosis. Moderate tricuspid valve regurgitation. Pulmonic Valve Pulmonic valve not well visualized. Pericardium No pericardial effusion. Aorta Normal size aortic root and mildly dilated proximal ascending aorta. IVC Dilated IVC with normal respiratory variation. CONCLUSIONS 1. Normal left ventricular size, systolic function and wall thickness, with no regional wall motion abnormalities. Left ventricular ejection fraction is estimated at 55-60%. 2. Moderate mitral and tricuspid valve regurgitation. 3. Mild aortic valve regurgitation. 4. Pulmonary artery pressure estimated at 35 mm Hg. 5. When compared to study report dated 11/23/2019, mitral and tricuspid valve regurgitation appears to have improved. Erna Saba MD (Electronically Signed) Final Date: 25 October 2022 11:43 S
== END 2022-10-17 12:41 | disposition home or self-care (01) ==
PROVIDERS: PCP Family Medicine; Visit Provider Internal Medicine Cardiovascular Disease
DX: I34.0 Nonrheumatic mitral (valve) insufficiency (principal); R06.02 Shortness of breath; I08.3 Combined rheumatic disorders of mitral, aortic and tricuspid valves
CPT/HCPCS: 93306

== ENCOUNTER → 2023-01-02 13:11 | Outpatient (BNVA) | payer MEDICARE, OTHER, SELFPAY | PROVIDERS: PCP Family Medicine; Visit Provider Family Medicine | DX: E03.9 Hypothyroidism, unspecified (principal); E53.8 Deficiency of other specified B group vitamins; I48.91 Unspecified atrial fibrillation | CPT/HCPCS: 80053; 82607; 84443 ==

== ENCOUNTER 2023-01-15 09:09 | Outpatient (CLI) | payer MEDICARE, OTHER, SELFPAY ==
--- NOTE | 2023-01-15 09:15 | US_ITS ---
WS: [id number] ULTRASOUND RENAL TECHNIQUE: Ultrasound examination of both kidneys. CLINICAL INFORMATION: worsening renal failure COMPARISON: None. FINDINGS: RIGHT: Right kidney is normal in size and appearance. Echogenicity: Normal. Cortical thickness: 1.1 cm; Normal. Hydronephrosis: None. Perinephric fluid: None. Right kidney measures: 10.0 cm x 4.2 cm x 5.2 cm. LEFT: Left kidney is normal in size and appearance. Echogenicity: Normal. Cortical thickness: 1.2 cm; Normal. Hydronephrosis: None. Perinephric fluid: None. Left kidney measures: 10.7 cm x 4.1 cm x 5.2 cm. Normal visualized aorta. Normal bladder. IMPRESSION: Normal renal ultrasound
== END 2023-01-15 09:10 | disposition home or self-care (01) ==
PROVIDERS: PCP Family Medicine; Visit Provider Family Medicine
DX: N19 Unspecified kidney failure (principal)
CPT/HCPCS: 76770

== ENCOUNTER 2023-01-27 14:09 | Outpatient (CLI) | payer MEDICARE, OTHER, SELFPAY ==
--- NOTE | 2023-01-27 14:17 | XRR_ITS ---
PROCEDURE INFORMATION: Exam: XR Lumbosacral Spine Exam date and time: 01/27/2023 2:23 PM Age: 88 years old Clinical indication: Low back pain; Additional info: M54.50 - low back pain, unspecified TECHNIQUE: Imaging protocol: Radiologic exam of the lumbosacral spine. Views: 2 or 3 views. COMPARISON: CT lumbar spine wo con* [id number] 04/26/2017 12:44 PM FINDINGS: Bones/joints: Diffusely demineralized bones. Slight cortical irregularity with suggested defect at the anteroinferior L3 vertebral body seen on lateral view attributed to summation artifact given intact appearance on coned-down lumbosacral view. Stable grade 1 anterolisthesis of L4 on L5. Stable anterior compression fractures of the T12 greater than T11 vertebral bodies. Moderate to severe intervertebral disc space narrowing, osteophytosis, and facet arthrosis at L4-L5 and L5-S1. Mild asymmetric cortical irregularity of the right inferior pubic ramus. Soft tissues: Unremarkable. Vasculature: Heavy systemic atherosclerotic calcification. Bilateral sacroiliac joint degenerative changes. XR/XR lumbar spine 2-3V* [id number] IMPRESSION: 1. Diffuse osteopenia without convincing radiographic evidence of acute fracture. 2. Mild asymmetric right inferior pubic ramus cortical irregularity suspected to represent chronic fracture. Correlate with clinical findings. 3. Stable chronic T11 and T12 compression fractures. 4. Multilevel, multifactorial lumbar spine degenerative changes, moderate to severe from L4-S1 with stable grade 1 anterolisthesis of L4 on L5.
== END 2023-01-27 14:10 | disposition home or self-care (01) ==
PROVIDERS: PCP Family Medicine; Visit Provider Nurse Practitioner Family
DX: M47.817 Spondylosis without myelopathy or radiculopathy, lumbosacral region (principal); M85.88 Other specified disorders of bone density and structure, other site; M48.54XA Collapsed vertebra, not elsewhere classified, thoracic region, initial encounter for fracture
CPT/HCPCS: 72100

== ENCOUNTER 2023-02-17 14:37 | Emergency (ER) | payer MEDICARE, OTHER, MEDICAID, SELFPAY ==
--- NOTE | 2023-02-17 14:48 | ECG_ITS ---
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 Measurements Intervals [place] Rate: 85 P: 0 UT: 0 QRS: 22 QRSD: 130 T: -43 QT: 376 QTc: 448 Interpretive Statements ATRIAL FIBRILLATION MODERATE INTRAVENTRICULAR CONDUCTION DELAY [110+ ms QRS DURATION] ST DEVIATION AND MODERATE T-WAVE ABNORMALITY, CONSIDER INFERIOR ISCHEMIA [-0.1+ mV T-WAVE IN II/aVF] Compared to ECG 05/31/2021 21:54:59 Intraventricular conduction delay now present T-wave abnormality now present Possible ischemia now present Right bundle-branch block no longer present Electronically Signed On 02-17-2023 15:10:19 SENIOR STRATEGY MANAGER by Erna Saba M.D. [id number]
--- NOTE | 2023-02-17 14:48 | XRR_ITS ---
PROCEDURE INFORMATION: Exam: XR Chest Exam date and time: 02/17/2023 3:13 PM Age: 88 years old Clinical indication: Shortness of breath; Additional info: SOB TECHNIQUE: Imaging protocol: Radiologic exam of the chest. Views: 1 view. COMPARISON: CR XR chest 1V portable [id number] 05/31/2021 9:45 PM FINDINGS: Lungs: Emphysematous changes of the lungs. No consolidation. Pleural spaces: Unremarkable. No pleural effusion. No pneumothorax. Heart/Mediastinum: Mild cardiomegaly. Bones/joints: Visualized osseous structures are intact. XR/XR chest 1V portable [id number] IMPRESSION: Sequela of COPD. Mild cardiomegaly. No acute findings.
[2023-02-17 15:01] VITALS: BP 129/75; PULSE 91; RESP 16; TEMP 36.5; O2SAT 98; BMI 22.1
[2023-02-17 15:21] LABS: Basophils % 0.6 %; Hematocrit 33.6 % (36-47); Lymphocytes # 1.1 10^3/uL (0.8-4.8); Mean Corpuscular HGB Conc 32.1 g/dL (30-55); Mean Corpuscular Hemoglobin 30.1 pg (27-33); Mean Corpuscular Volume 93.6 fl (85-98); Mean Platelet Volume 9.6 fL (7.4-10.4); Monocytes # 0.6 10^3/uL (0.2-0.9); Monocytes % 8.9 %; Neutrophils # 4.49 10^3/uL (1.8-7.7); Neutrophils % 72.5 %; Nucleated Red Blood Cells % 0 %; Platelet Count 284 10^3/cmm (157-399); Red Blood Count 3.59 10^6/uL (3.85-5.65); Red Cell Distribution Width 15.3 % (12.1-15.1); White Blood Count 6.19 10^3/uL (3.29-11.43)
[2023-02-17 15:43] LABS: Troponin(5th) Baseline 27 ng/L (0-10)
--- NOTE | 2023-02-17 15:50 | W.ED.CHESTPA ---
HPI - Chest Pain General: Chief Complaint: Chest Pain Stated Complaint: cp, sob, head pain Time Seen by Provider: 02/17/23 15:37 Source: patient Mode of arrival: ambulatory Limitations: no limitations History of Present Illness: 88-year-old female states that she has had chest pain its been intermittent over the last 2 nights. States she went to her PCP today and he had sent her here. States she has had chronic pain does have chronic dyspnea she has a leaky valve. States she is currently pain-free denies any shortness of breath currently as well. She denies any cough or fever denies any abdominal pain. Associated symptoms: Deny abdominal pain, dyspnea, fever(s), nausea or vomiting Review of Systems Const: Denies: fever(s) or chills Eyes: Denies: eye discomfort ENMT: Denies: throat pain or dental pain Card: Reports: chest pain Resp: Denies: dyspnea GI: Denies: abdominal pain, nausea, vomiting or diarrhea : Denies: dysuria Musc: Denies: neck pain or back pain Skin/Breast: Denies: rash Neuro: Denies: headache(s) PFSH ED PFSH: Medical History Atrial fibrillation COVID-19 GERD (gastroesophageal reflux disease) HTN (hypertension) Hypothyroidism Long-term (current) use of anticoagulants, INR goal 2.0-3.0 Severe mitral regurgitation Surgical History S/P skin and subcutaneous tissue surgery 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 S/P tonsillectomy Family History Mother Dementia Heart disease Stroke Father Lung disease Physical Exam Const: COMMON NORMALS: no acute distress, patient oriented x3 and healthy appearing HENMT: COMMON NORMALS: normocephalic and atraumatic HEAD & SCALP: normocephalic and atraumatic Eye: COMMON NORMALS: Equal, round and reactive pupils present and EOMs intact bilaterally PUPIL: Yes Equal, round and reactive pupils present Neck/C-Spine: COMMON NORMALS: full ROM and supple Chest: COMMONS NORMALS: normal inspection of the chest and normal palpation of entire chest wall Resp: COMMON NORMALS: normal respiratory effort, No retractions, No use of accessory muscles and clear to auscultation bilaterally AUSCULTATION: clear to auscultation bilaterally Cardio: COMMON NORMALS: regular rate and No murmurs present (Cardio) RATE: regular rate RHYTHM: abnormal rhythm irregularly irregular GI: COMMON NORMALS: Normal to inspection, nondistended, normoactive bowel sounds present, Soft to palpation, non-tender and no masses PALPATION: Yes Soft to palpation Extremity: COMMON NORMALS: normal to inspection and full ROM Neuro: COMMON NORMALS: patient oriented x3, moves all extremities and no focal motor deficits Psych: COMMON NORMALS: mental status grossly normal, Normal thought process present and cooperative THOUGHT PROCESS: Normal thought process present Skin: COMMON NORMALS: no rashes or lesions noted and no wounds GENERAL SKIN EXAM: no rashes or lesions noted Course Vital Signs: Vital signs: Vital Signs Temperature 97.7 F 02/17/23 18:21 Pulse Rate 84 02/17/23 18:21 Respiratory Rate 16 02/17/23 18:21 Blood Pressure 172/104 02/17/23 18:21 Pulse Oximetry 97 02/17/23 18:21 MDM - Chest Pain Medical Decision Making Patient presents here with chest pain initial repeat troponin here negative she is well-appearing here she has been pain-free here she has been in no distress she has no signs of pulmonary embolism x-ray here is normal does have a mildly elevated BNP no signs of severe heart failure she is stable for discharge 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 Medical Records I reviewed the patient's medical records. Lab Data I reviewed the patient's lab results. 02/17/23 15:11 02/17/23 15:11 Radiology Impressions Chest X-Ray 02/17/23 14:48 IMPRESSION: Sequela of COPD. Mild cardiomegaly. No acute findings. Laboratory Results WBC 6.19 10^3/uL (3.29-11.43) 02/17/23 15:11 RBC 3.59 10^6/uL (3.85-5.65) L 02/17/23 15:11 Hgb 10.80 g/dL (11.27-16.99) L 02/17/23 15:11 Hct 33.6 % (36-47) L 02/17/23 15:11 MCV 93.6 fl (85-98) 02/17/23 15:11 MCH 30.1 pg (27-33) 02/17/23 15:11 MCHC 32.1 g/dL (30-55) 02/17/23 15:11 RDW 15.3 % (12.1-15.1) H 02/17/23 15:11 Plt Count 284 10^3/cmm (157-399) 02/17/23 15:11 MPV 9.6 fL (7.4-10.4) 02/17/23 15:11 Neut % (Auto) 72.5 % 02/17/23 15:11 Lymph % (Auto) 17.0 % 02/17/23 15:11 [place] % (Auto) 8.9 % 02/17/23 15:11 Eos % (Auto) 0.0 % 02/17/23 15:11 Baso % (Auto) 0.6 % 02/17/23 15:11 Neut # (Auto) 4.49 10^3/uL (1.8-7.7) 02/17/23 15:11 Lymph # (Auto) 1.1 10^3/uL (0.8-4.8) 02/17/23 15:11 [place] # (Auto) 0.6 10^3/uL (0.2-0.9) 02/17/23 15:11 Eos # (Auto) 0.0 10^3/uL (0.0-0.8) 02/17/23 15:11 Baso # (Auto) 0.0 10^3/uL (0.0-0.1) 02/17/23 15:11 Nucleated RBC % (auto) 0 % 02/17/23 15:11 Nucleated RBCs # 0.0 /100WBC 02/17/23 15:11 PT 25.90 SECONDS (12.1-14.9) H 02/17/23 15:41 INR 2.27 (0.8-1.2) H 02/17/23 15:41 Sodium 139 mmol/L (136-145) 02/17/23 15:11 Potassium 5.0 mmol/L (3.5-5.1) 02/17/23 15:11 Chloride 110 mmol/L (98-107) H 02/17/23 15:11 Carbon Dioxide 18 mmol/L (22-29) L 02/17/23 15:11 Anion Gap 16.0 (5-19) 02/17/23 15:11 BUN 29 mg/dL (8-23) H 02/17/23 15:11 Creatinine 1.5 mg/dL (0.5-0.9) H 02/17/23 15:11 GFR Calculation Not Reportable 02/17/23 15:11 Glucose 129 mg/dL (65-115) H 02/17/23 15:11 Calculated Osmolality 296 mOsm/kg (285-295) H 02/17/23 15:11 Calcium 8.8 mg/dL (8.5-10.5) 02/17/23 15:11 Total Bilirubin 0.9 mg/dL (0.15-1.2) 02/17/23 15:11 AST 13 U/L (0-32) 02/17/23 15:11 ALT 11 U/L (0-33) 02/17/23 15:11 Alkaline Phosphatase 168 U/L (35-105) H 02/17/23 15:11 Troponin T Baseline 27 ng/L (0-10) H 02/17/23 15:11 Troponin T 120 Minute 27.23 ng/L (0-10) H 02/17/23 17:02 Delta Troponin T 0.23 ABS# (0-10) 02/17/23 17:02 NT-Pro-B Natriuret Pep 5860 pg/mL (0-450) H 02/17/23 15:11 Total Protein 6.7 g/dL (6.6-8.7) 02/17/23 15:11 Albumin 4.1 g/dL (3.5-5.2) 02/17/23 15:11 Globulin 2.6 g/dL (1.3-4.6) 02/17/23 15:11 Lipase 37 U/L (13-60) 02/17/23 15:11 All radiology interpretation(s) finalized by discharge EKG Data EKG 1: I personally reviewed and interpreted this EKG as follows: EKG interpretation date: 02/17/23 EKG interpretation time: 14:58 Interpretation: afib hr [address] or t wave abonrmalities qrs 130 qtc 418 Discharge Plan Discharge Patient Disposition: Home Clinical Impression: Chest pain Condition: Stable Prescriptions: No Action prednisone 20 mg tablet 20 mg PO DAILY Qty: 5 0RF hydrochlorothiazide 12.5 mg capsule 12.5 mg PO BID PRN clotrimazole 1 % cream 1 applic topical BID PRN (Reason: skin rash) levothyroxine 88 mcg tablet 88 mcg PO DAILY Qty: 90 1RF warfarin 2 mg tablet 2 mg PO DAILY 90 Days Qty: 90 3RF Protocol: Dose Management Condition: Friday Dose/Route: 1 mg Instruction: 1 x 1 mg tablet Condition: Friday Dose/Route: 1 mg Instruction: 1 x 1 mg tablet Condition: Friday Dose/Route: 2 mg Instruction: 1 x 2 mg tablet Condition: Friday Dose/Route: 1 mg Instruction: 1 x 1 mg tablet Condition: Dose/Route: 2 mg Instruction: 1 x 2 mg tablet Condition: Friday Dose/Route: 1 mg Instruction: 1 x 1 mg tablet Condition: Friday Dose/Route: 1 mg Instruction: 1 x 1 mg tablet Protocol Text: Adjustment Start Date: Friday02/07/23 INR Value: 2.5 INR Date: 02/07/23 Recheck Date: 02/14/23 Rx Instructions: take on Friday, and Friday warfarin 1 mg tablet 1 mg PO DIRECTED Qty: 180 3RF Protocol: Dose Management Condition: Friday Dose/Route: 1 mg Instruction: 1 x 1 mg tablet Condition: Friday Dose/Route: 1 mg Instruction: 1 x 1 mg tablet Condition: Friday Dose/Route: 2 mg Instruction: 1 x 2 mg tablet Condition: Friday Dose/Route: 1 mg Instruction: 1 x 1 mg tablet Condition: Dose/Route: 2 mg Instruction: 1 x 2 mg tablet Condition: Friday Dose/Route: 1 mg Instruction: 1 x 1 mg tablet Condition: Friday Dose/Route: 1 mg Instruction: 1 x 1 mg tablet Protocol Text: Adjustment Start Date: Friday02/07/23 INR Value: 2.5 INR Date: 02/07/23 Recheck Date: 02/14/23 Rx Instructions: Take as directed according to INR results. valsartan 80 mg tablet 80 mg PO BID Qty: 180 3RF albuterol sulfate 90 mcg/actuation HFA aerosol inhaler 2 inh inhalation QID PRN (Reason: shortness of breath or wheezing) Qty: 8.5 2RF felodipine 5 mg tablet extended release 24 hr 5 mg PO DAILY Qty: 90 3RF cyanocobalamin (vitamin B-12) 1,000 mcg/mL solution 1,000 mcg IM .monthly 30 Days Qty: 10 1RF Myrbetriq 25 mg tablet extended release 24 hr 25 mg PO DAILY Qty: 90 1RF isosorbide mononitrate 30 mg tablet extended release 24 hr 15 mg PO BID Qty: 180 3RF latanoprost 0.005 % drops 1 drp ophthalmic (eye) BID Rx Instructions: (both eyes) timolol maleate 0.25 % drops 1 drp ophthalmic (eye) DAILY Rx Instructions: (both eyes) PreserVision AREDS [id number],[id number] [id number] tablet 1 tab PO BID Discharge Orders: Discharge ED (Routine); Ordered 02/17/23 Ordered By: Bogdan Reyes Referrals: Juan Ramon Diamond DO [Primary Care Provider] - Erna Saba MD [Physician] - 1-3 days Discharge Diet: Advance as tolerated Discharge Activity: Resume usual activity Patient Instructions: Chest Pain (ED) Coding Level of Care Code ED Senior Payroll Manager for Juan Lindsay
[2023-02-17 15:53] LABS: Alanine Aminotransferase 11 U/L (0-33); Albumin Level 4.1 g/dL (3.5-5.2); Alkaline Phosphatase 168 U/L (35-105); Aspartate Amino Transferase 13 U/L (0-32); Blood Urea Nitrogen 29 mg/dL (8-23); Calcium 8.8 mg/dL (8.5-10.5); Carbon Dioxide 18 mmol/L (22-29); Chloride 110 mmol/L (98-107); Globulin 2.6 g/dL (1.3-4.6); Glucose 129 mg/dL (65-115); Lipase 37 U/L (13-60); NT Pro B Type Natriuretic Pept 5860 pg/mL (0-450); Osmolality Calculated 296 mOsm/kg (285-295); Sodium 139 mmol/L (136-145); Total Bilirubin 0.9 mg/dL (0.15-1.2); Total Protein 6.7 g/dL (6.6-8.7)
[2023-02-17 16:38] VITALS: BP 185/124; PULSE 84; RESP 16; O2SAT 97
[2023-02-17] MEDS: FUROsemide 10 mg/mL SDV 4mL 40 MG IVP (16:39)
--- NOTE | 2023-02-17 16:54 | ECG_ITS ---
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 Measurements Intervals [place] Rate: 96 P: 0 SD: 0 QRS: 46 QRSD: 125 T: -58 QT: 356 QTc: 450 Interpretive Statements ATRIAL FIBRILLATION POSSIBLE RIGHT VENTRICULAR CONDUCTION DELAY [RSR (QR) IN V1/V2] ST DEVIATION AND MODERATE T-WAVE ABNORMALITY, CONSIDER INFERIOR ISCHEMIA [-0.1+ mV T-WAVE IN II/aVF] Compared to ECG 02/17/2023 14:58:52 Intraventricular conduction delay no longer present T-wave abnormality still present Possible ischemia still present Electronically Signed On 02-17-2023 17:19:16 PLANER CHAIN OFFBEARER by Rex Govea M.D. [id number]
[2023-02-17 17:02] LABS: INR 2.27 (0.8-1.2)
[2023-02-17] MEDS: hyDRALAzine 20 mg/mL INJ 1 mL 10 MG IVP (17:16)
[2023-02-17 17:28] LABS: Troponin 5 2HR 27.23 ng/L (0-10)
[2023-02-17 17:30] LABS: Troponin 5 2HR Delta 0.23 ABS# (0-10)
[2023-02-17 18:21] VITALS: BP 172/104; PULSE 84; RESP 16; TEMP 36.5; O2SAT 97
--- NOTE | 2023-02-17 18:53 | DCPLANNER ---
Message was sent to heart care on 02-17-23 at [id number]. Clinic to contact patient
== END 2023-02-17 18:22 | disposition home or self-care (01) ==
PROVIDERS: Emergency Provider Emergency Medicine; PCP Family Medicine
DX: R07.9 Chest pain, unspecified (principal); Z79.01 Long term (current) use of anticoagulants; J44.9 Chronic obstructive pulmonary disease, unspecified; I11.9 Hypertensive heart disease without heart failure
CPT/HCPCS: 36415; 71045; 80053; 83690; 83880; 84484; 85025; 85610; 93005; 96374; 96375; 99285; J0360; J1940

== ENCOUNTER → 2023-02-27 13:39 | Outpatient (BNVA) | payer MEDICARE, OTHER, SELFPAY | PROVIDERS: PCP Family Medicine; Visit Provider Nurse Practitioner Family | DX: I34.0 Nonrheumatic mitral (valve) insufficiency (principal); I10 Essential (primary) hypertension; I48.19 Other persistent atrial fibrillation | CPT/HCPCS: 99213 ==

== ENCOUNTER → 2023-03-26 15:06 | Outpatient (BNVA) | payer MEDICARE, OTHER, SELFPAY | PROVIDERS: PCP Family Medicine; Visit Provider Clinical Nurse Specialist Adult Health | DX: R53.1 Weakness (principal) | CPT/HCPCS: 80053; 81000; 85025; 85651; 86140; 87426 ==

== ENCOUNTER → 2023-03-27 10:15 | Outpatient (BNVA) | payer MEDICARE, OTHER, SELFPAY | PROVIDERS: PCP Family Medicine; Visit Provider Family Medicine | DX: N39.0 Urinary tract infection, site not specified (principal) | CPT/HCPCS: 81000; 87077; 87086; 87184 ==

== ENCOUNTER 2023-03-30 11:30 | Emergency (ER) | payer MEDICARE, OTHER, MEDICAID, SELFPAY ==
[2023-03-30] VITALS (9 sets, daily range): BP systolic 157–188; BP diastolic 83–109; PULSE 76–92; RESP 16–19; TEMP 36.4; O2SAT 96–100; BMI 22.3
--- NOTE | 2023-03-30 11:30 | ED_ITS ---
HPI - General Adult 2 General: Chief complaint: Weakness Stated complaint: WEAKNESS; SOB Time Seen by Provider: 03/30/23 11:30 History of Present Illness: 88-year-old female presents to the emerg ency department via EMS personnel at the request of her family. EMS personnel state that the family called them because they felt that the patient was having increased weakness and shortness of breath. Patient at present denies being short of breath and she denies pain. Patient does not appear to be in any acute respiratory distress and has an oxygen saturation of 98% on room air. It does appear that the patient has been recently seen several times and that the family has called EMS for concerns of increasing weakness. The patient was recently diagnosed with a urinary tract infection on 03/27/2023. 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 Vital signs reviewed as documented. HENMT: Normocephalic, atraumatic. Extermal ears with normal appearance without drainage. Nose without drainage, normal appearance. Mucus membranes moist. Neck is supple, No jugular venous distension, trachea is midline, no appreciable carotid bruits. No lymphadenopathy. No meningeal signs. Flexion, extension and lateral rotation is without pain. Eyes: Pupils are equal, round, reactive to light and accommodation. No scleral icterus. Extra-ocular movement are intact. Thorax is symmetrical and with equal rise and fall with respirations. Resp: Lungs are clear to auscultation. No wheezes, rales, crackles or ronchi at present. Cardio: Regular rate and rhythm. Positive S1, S2. No appreciable murmurs, rubs or gallops. GI: Abdominal exam reveals normal bowel sounds to all quadrants. No organomegaly. No obvious palpable masses noted. No hepatomegally appreciated. Soft, nontender to palpation. Extremity: Extremities are non-edematous and both femoral and pedal pulses are 2+ and equal bilaterally. Moves all extremities well, sensation in all extremities. Neuro: Alert and oriented x4, person, place, time and situation. Cranial nerves II through XII are grossly intact, there is no focal neurological deficits that I can appreciate at present. Motor strength in the upper and lower extremities are equal and bilateral 5/5. Psych: Cooperative, calm, normal thought process, appropriate judgment. Skin: No lesions, rashes. No gross abnormalities noted. Back: Symmetrical, no obvious deformity, No CVA tenderness Course 2 Vital Signs: Vital signs: Vital Signs Temperature 97.5 F L 03/30/23 11:33 Pulse Rate 76 03/30/23 16:04 Respiratory Rate 18 03/30/23 16:04 Blood Pressure 157/90 03/30/23 16:04 Pulse Oximetry 96 03/30/23 16:04 Oxygen Delivery Me thod Room Air 03/30/23 12:31 MDM - General Adult Medical Decision Making Physical exam completed and documented, I will obtain a CBC, CMP EKG chest x-ray as well as a PT PTT INR. Differential Diagnosis Failure to thrive, worsening UTI, dehydration, electrolyte abnormality, Medical Records I reviewed the patient's medical records. Lab Data I reviewed the patient's lab results. 03/30/23 12:27 03/30/23 12:27 Radiology Impressions Chest X-Ray 03/30/23 11:52 IMPRESSION: New small to moderate-sized right-sided pleural effusion. Right lung base airspace opacity is likely on the basis of compressive atelectasis, but nonspecific. Follow-up chest x-ray is recommended to confirm resolution, and exclude other process.. Laboratory Results WBC 7.73 10^3/uL (3.29-11.43) 03/30/23 12:27 RBC 3.21 10^6/uL (3.85-5.65) L 03/30/23 12: Hgb 9.60 g/dL (11.27-16.99) L 03/30/23 12: Hct 30.3 % (36-47) L 03/30/23 12: MCV 94.4 fl (85-98) 03/30/23 12: MCH 29.9 pg (27-33) 03/30/23 12: MCHC 31.7 g/dL (30-55) 03/30/23 12: RDW 15.4 % (12.1-15.1) H 03/30/23 12: Plt Count 267 10^3/cmm (157-399) 03/30/23 12: MPV 10.2 fL (7.4-10.4) 03/30/23 12: Neut % (Auto) 77.6 % 03/30/23 12: Lymph % (Auto) 14.7 % 03/30/23 12: Saline % (Auto) 6.6 % 03/30/23 12: Eos % (Auto) 0.0 % 03/30/23 12: Baso % (Auto) 0.5 % 03/30/23 12: Neut # (Auto) 5.99 10^3/uL (1.8-7.7) 03/30/23 12: Lymph # (Auto) 1.1 10^3/uL (0.8-4.8) 03/30/23 12: Saline # (Auto) 0.5 10^3/uL (0.2-0.9) 03/30/23 12: Eos # (Auto) 0.0 10^3/uL (0.0-0.8) 03/30/23 12: Baso # (Auto) 0.0 10^3/uL (0.0-0.1) 03/30/23 12: Nucleated RBC % (auto) 0 % 03/30/23 12: Nucleated RBCs # 0.0 /100WBC 03/30/23 12: PT 38.90 SECONDS (12.1-14.9) H 03/30/23 12: INR 3.80 (0.8-1.2) H 03/30/23 12: APTT 67.0 SECONDS (23.9-36.7) H 03/30/23 12:27 Sodium 137 mmol/L (136-145) 03/30/23 12:27 Potassium 5.7 mmol/L (3.5-5.1) H 03/30/23 12:27 Chloride 110 mmol/L (98-107) H 03/30/23 12:27 Carbon Dioxide 12 mmol/L (22-29) L 03/30/23 12:27 Anion Gap 20.7 (5-19) H 03/30/23 12:27 BUN 51 mg/dL (8-23) H 03/30/23 12:27 Creatinine 2.2 mg/dL (0.5-0.9) H 03/30/23 12:27 GFR Calculation Not Reportable 03/30/23 12:27 Glucose 101 mg/dL (65-115) 03/30/23 12: POC Glucose 102 mg/dL (70-110) 03/30/23 12:04 Calculated Osmolality 298 mOsm/kg (285-295) H 03/30/23 12:27 Calcium 9.0 mg/dL (8.5-10.5) 03/30/23 12:27 Total Bilirubin 0.6 mg/dL (0.15-1.2) 03/30/23 12: AST 17 U/L (0-32) 03/30/23 12: ALT 15 U/L (0-33) 03/30/23 12:27 Alkaline Phosphatase 143 U/L (35-105) H 03/30/23 12:27 NT-Pro-B Natriuret Pep 9036 pg/mL (0-450) H 03/30/23 12:27 Total Protein 6.9 g/dL (6.6-8.7) 03/30/23 12:27 Albumin 4.0 g/dL (3.5-5.2) 03/30/23 12:27 Globulin 2.9 g/dL (1.3-4.6) 03/30/23 12:27 Procalcitonin 0.11 ng/mL (0-0.5) 03/30/23 12:27 Urine Color Straw (Yellow) 03/30/23 14:04 Urine Appearance Hazy (CLEAR) A 03/30/23 14:04 Urine pH 5 (5-7) 03/30/23 14:04 Ur Specific [place] 1.015 (1.005-1.030) 03/30/23 14:04 Urine Protein 2+ (Negative) H 03/30/23 14:04 Urine Glucose (UA) Norm (Normal) 03/30/23 14:04 Urine Ketones 1+ (Negative) H 03/30/23 14:04 Urine Blood 2+ (Negative) H 03/30/23 14:04 Urine Nitrate Negative (Negative) 03/30/23 14:04 Urine Bilirubin Neg (Negative) 03/30/23 14:04 Urine Urobilinogen Norm mg/dL (Negative) 03/30/23 14:04 Ur Leukocyte Esterase Trace (Negative) H 03/30/23 14:04 Urine RBC 5-10 /hpf (0-2) H 03/30/23 14:04 Urine WBC 15-25 /hpf (0-5) H 03/30/23 14:04 Ur Squamous Epith Cells None /hpf (0-5) 03/30/23 14:04 Amorphous Sediment Not Reportable 03/30/23 14:04 Urine Bacteria 3+ /hpf (NONE) H 03/30/23 14:04 All radiology interpretation(s) finalized by discharge Discharge Plan Discharge Patient Disposition: Home Clinical Impression: Weakness, Chronic kidney insufficiency, Acute UTI, Hypertension, uncontrolled Condition: Stable Prescriptions: No Action tramadol 50 mg tablet 50 mg PO BID PRN (Reason: pain) Qty: 10 0RF ciprofloxacin HCl [Cipro] 500 mg tablet 500 mg PO BID 5 Days Qty: 10 0RF clotrimazole 1 % cream 1 applic topical BID PRN (Reason: skin rash) valsartan 80 mg tablet 80 mg PO BID Qty: 180 3RF Hold Instructions: Doctor's Order albuterol sulfate 90 mcg/actuation HFA aerosol inhaler 2 inh inhalation QID PRN (Reason: shortness of breath or wheezing) Qty: 8.5 2RF cyanocobalamin (vitamin B-12) 1,000 mcg/mL solution 1,000 mcg IM .monthly 30 Days Qty: 10 1RF Myrbetriq 25 mg tablet extended release 24 hr 25 mg PO DAILY Qty: 90 1RF Hold Instructions: Doctor's Order Rx Instructions: MED ON HOLD 03/30/23 isosorbide mononitrate 30 mg tablet extended release 24 hr 15 mg PO BID Qty: 180 3RF famotidine 20 mg tablet 20 mg PO BID Qty: 180 1RF clonidine HCl 0.1 mg tablet 0.1 mg PO BID PRN (Reason: hypertensive emergency) Qty: 60 2RF Rx Instructions: Niya take 1 tab twice daily for blood pressure greater than 165/95 latanoprost 0.005 % drops 1 drp ophthalmic (eye) BEDTIME Rx Instructions: (both eyes) timolol maleate 0.5 % drops 1 drp ophthalmic (eye) BID PreserVision AREDS-2 250-90-40-1 mg Capsule 1 cap PO BID levothyroxine 88 mcg tablet 88 mcg PO QAM felodipine 10 mg tablet extended release 24 hr 10 mg PO QAM trimethoprim 100 mg tablet 100 mg PO QAM Hold Instructions: Doctor's Order Rx Instructions: take one by mouth for uti warfarin 1 mg tablet See Rx Instructions .ROUTE .COMPLEX Protocol: Dose Management Condition: Friday Dose/Route: 0 mg Instruction: 0 tablets Condition: Friday Dose/Route: 0 mg Instruction: 0 tablets Condition: Friday Dose/Route: 1 mg Instruction: 1 x 1 mg tablet Condition: Friday Dose/Route: 1 mg Instruction: 1 x 1 mg tablet Condition: Dose/Route: 1 mg Instruction: 1 x 1 mg tablet Condition: Friday Dose/Route: 1 mg Instruction: 1 x 1 mg tablet Condition: Friday Dose/Route: 0 mg Instruction: 0 tablets Protocol Text: Adjustment Start Date: 04/10/23 INR Value: 2.3 INR Date: 04/09/23 Recheck Date: 04/17/23 Rx Instructions: TAKE ONE TAB (1MG) PO DAILY ON FRI,FRI,FRI,FRI AND FRI AND TAKE TWO TABS (2MG) PO ON AND ACCORDING TO INR RESULTS DIRECTED Discharge Orders: Discharge ED (Routine); Ordered 03/30/23 Ordered By: Hal Rich Referrals: Juan Ramon Diamond DO [Primary Care Provider] - Discharge Diet: Advance as tolerated Discharge Activity: Resume usual activity Patient Instructions: Opioid Safety, Pain Management Activity Restrictions/Additional Instructions: Activity Restrictions/Additional Instructions: Thank you for choosing [facility] for your healthcare needs today. Please realize that you were seen in the Emergency Department and that we are providing you with an emergency medical screening exam and this may not be a complete and all inclusive of all the testing and or medical work-up that you may need to determine your ailment or severity of your illness. It is very important that you follow-up as instructed with your Primary care provider or Specialist for additional evaluation and to discuss your medical treatment plan. You may return to the Emergency Department should you have concerns or if your condition changes or worsens in any way. Coding Level of Care Code ED Slitting Machine Operator Helper for Juan Lindsay
--- NOTE | 2023-03-30 11:52 | ECG_ITS ---
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 Measurements Intervals Ranger Rate: 89 P: 0 AL: 0 QRS: 38 QRSD: 137 T: -62 QT: 384 QTc: 469 Interpretive Statements ATRIAL FIBRILLATION RIGHT BUNDLE BRANCH BLOCK [120+ ms QRS DURATION, UPRIGHT V1, 40+ ms S IN I/aVL/V4/V5/V6] ST DEVIATION AND MODERATE T-WAVE ABNORMALITY, CONSIDER INFERIOR ISCHEMIA [-0.1+ mV T-WAVE IN II/aVF] Compared to ECG 02/17/2023 16:54:21 Right bundle-branch block now present T-wave abnormality still present Possible ischemia still present Electronically Signed On 03-30-2023 19:45:14 STUDY MANAGER by Humberot Gannon M.D. [id number] f
--- NOTE | 2023-03-30 11:52 | XRR_ITS ---
PROCEDURE INFORMATION: Exam: XR Chest Exam date and time: 03/30/2023 12:30 PM Age: 88 years old Clinical indication: Cough and shortness of breath; Patient HX: SOB; Cough; Weakness TECHNIQUE: Imaging protocol: Radiologic exam of the chest. Views: 1 view. COMPARISON: CR XR chest 1V portable [id number] 02/17/2023 3:13 PM FINDINGS: Lungs: Right lung base density likely on the basis of compressive atelectasis. Pleural spaces: New opacity at the right costophrenic angle consistent with a small to moderate-sized pleural effusion. Heart/Mediastinum: The heart remains enlarged. Mediastinal configuration appears stable allowing for differences in projection. Bones/joints: No acute osseous abnormality identified. Soft tissues: Skin folds are noted over the left chest. XR/XR chest 1V portable [id number] IMPRESSION: New small to moderate-sized right-sided pleural effusion. Right lung base airspace opacity is likely on the basis of compressive atelectasis, but nonspecific. Follow-up chest x-ray is recommended to confirm resolution, and exclude other process..
[2023-03-30 12:09] LABS: Glucose Point of Care 102 mg/dL (70-110)
[2023-03-30 12:45] LABS: Basophils % 0.5 %; Hematocrit 30.3 % (36-47); Lymphocytes # 1.1 10^3/uL (0.8-4.8); Lymphocytes % 14.7 %; Mean Corpuscular HGB Conc 31.7 g/dL (30-55); Mean Corpuscular Hemoglobin 29.9 pg (27-33); Mean Corpuscular Volume 94.4 fl (85-98); Mean Platelet Volume 10.2 fL (7.4-10.4); Monocytes # 0.5 10^3/uL (0.2-0.9); Monocytes % 6.6 %; Neutrophils # 5.99 10^3/uL (1.8-7.7); Neutrophils % 77.6 %; Nucleated Red Blood Cells % 0 %; Platelet Count 267 10^3/cmm (157-399); Red Blood Count 3.21 10^6/uL (3.85-5.65); Red Cell Distribution Width 15.4 % (12.1-15.1); White Blood Count 7.73 10^3/uL (3.29-11.43)
[2023-03-30 13:14] LABS: NT Pro B Type Natriuretic Pept 9036 pg/mL (0-450); Procalcitonin 0.11 ng/mL (0-0.5)
[2023-03-30 13:25] LABS: Alanine Aminotransferase 15 U/L (0-33); Alkaline Phosphatase 143 U/L (35-105); Anion Gap 20.7 (5-19); Aspartate Amino Transferase 17 U/L (0-32); Blood Urea Nitrogen 51 mg/dL (8-23); Carbon Dioxide 12 mmol/L (22-29); Chloride 110 mmol/L (98-107); Globulin 2.9 g/dL (1.3-4.6); Glucose 101 mg/dL (65-115); Osmolality Calculated 298 mOsm/kg (285-295); Potassium 5.7 mmol/L (3.5-5.1); Sodium 137 mmol/L (136-145); Total Bilirubin 0.6 mg/dL (0.15-1.2); Total Protein 6.9 g/dL (6.6-8.7)
[2023-03-30 14:26] LABS: Add Urine Microscopic? YES; Bilirubin Urine Neg (Negative); Blood Urine 2+ (Negative); Glucose Urine UA Norm (Normal); Ketones Urine 1+ (Negative); Leukocyte Esterase Urine Trace (Negative); Nitrate Urine Negative (Negative); Protein Urine 2+ (Negative); Specific Gravity, Urine 1.015 (1.005-1.030); Urine Appearance Hazy (CLEAR); Urine Color Straw (Yellow); Urobilinogen Urine Norm (Negative); pH Urine 5 (5-7)
[2023-03-30 14:27] LABS: Add Urine Culture? Yes; Bacteria Urine 3+ /hpf; WBC Urine 15-25 /hpf (0-5)
[2023-03-30] MEDS: cloNIDine 0.1 mg Tablet PO (14:55)
== END 2023-03-30 16:20 | disposition home or self-care (01) ==
PROVIDERS: Emergency Provider Internal Medicine; PCP Family Medicine
DX: R53.1 Weakness (principal); N39.0 Urinary tract infection, site not specified; I12.9 Hypertensive chronic kidney disease with stage 1 through stage 4 chronic kidney disease, or unspecified chronic kidney disease; N18.9 Chronic kidney disease, unspecified; Z87.440 Personal history of urinary (tract) infections; Z79.01 Long term (current) use of anticoagulants
CPT/HCPCS: 36416; 71045; 80053; 81001; 82962; 83880; 84145; 85025; 85610; 85730; 87077; 87086; 87186; 93005; 99285

== ENCOUNTER → 2023-03-31 12:47 | Outpatient (BNVA) | payer MEDICARE, OTHER, MEDICAID, SELFPAY | PROVIDERS: PCP Family Medicine; Visit Provider Internal Medicine Cardiovascular Disease | DX: I48.19 Other persistent atrial fibrillation (principal); I12.9 Hypertensive chronic kidney disease with stage 1 through stage 4 chronic kidney disease, or unspecified chronic kidney disease; N18.9 Chronic kidney disease, unspecified; N17.9 Acute kidney failure, unspecified; I34.0 Nonrheumatic mitral (valve) insufficiency; R07.9 Chest pain, unspecified; N39.0 Urinary tract infection, site not specified; Z79.01 Long term (current) use of anticoagulants | CPT/HCPCS: 99215 ==

== ENCOUNTER → 2023-04-04 12:11 | Outpatient (BNVA) | payer MEDICARE, OTHER, MEDICAID, SELFPAY | PROVIDERS: PCP Family Medicine; Visit Provider Clinical Nurse Specialist Adult Health | DX: M54.50 Low back pain, unspecified (principal); N39.0 Urinary tract infection, site not specified; N17.9 Acute kidney failure, unspecified | CPT/HCPCS: 80053 ==